=== PATIENT | female | born 1995 | race American Indian/Alaskan Native ===

== ENCOUNTER 2017-06-04 11:17 | Inpatient (IN) | payer OTHER ==
[2017-06-04 12:55] LABS: Bacteria,Urine 1+ /HPF (Negative); Bilirubin,Urine NEG (Negative); Blood,Urine SM (Negative); Color,Urine Yellow (Yellow); Mucus,Urine 3+ /HPF; Nitrite,Urine NEG (Negative)
[2017-06-04] MEDS ORDERED: ALUM-MAG HYDROX-SIMETH 200-200-20MG/5ML PO PRN (13:54)
[2017-06-04] MEDS ORDERED: MILK OF MAGNESIA PO PRN (13:54)
[2017-06-04] MEDS ORDERED: ZOFRAN IV PRN (13:54)
[2017-06-04] MEDS ORDERED: SENOKOT S PO PRN (13:54)
[2017-06-04] MEDS ORDERED: MYLICON PO PRN (13:54)
[2017-06-04] MEDS ORDERED: BENADRYL PO PRN (13:54)
[2017-06-04] MEDS ORDERED: TYLENOL PO PRN (13:54)
[2017-06-04] MEDS ORDERED: AMBIEN PO PRN (13:54)
[2017-06-04] MEDS ORDERED: MAGNESIUM SULFATE 40GM/1000ML 40 GM/1,000 ML BAG IV ONE (14:03)
[2017-06-04] MEDS ORDERED: MAGNESIUM SULFATE 4GM/100ML 4 GM/100 ML BAG IV ONE ×2 (14:04→15:00)
[2017-06-04] MEDS ORDERED: APRESOLINE ONE (14:04)
[2017-06-04] MEDS ORDERED: COLACE PO PRN (14:07)
[2017-06-04] MEDS: NORMODYNE PO SCH ×2 (14:10→22:17)
[2017-06-04 14:21] LABS: Alanine Aminotransferase 14 units/L (7-56); Uric Acid 3.7 mg/dL (3.5-7.6)
[2017-06-04 14:22] LABS: Hematocrit 33.4 % (30.3-42.9); Hemoglobin 10.9 gm/dl (10.1-14.3); Mean Corpuscular HGB Conc 33 % (30-34); Mean Corpuscular Hemoglobin 28 pg (28-32); Mean Corpuscular Volume 85 fl (79-97); Platelet Count 156 K/mm3 (140-440); Red Blood Count 3.92 M/mm3 (3.65-5.03)
[2017-06-04] MEDS ORDERED: MAGNESIUM SULFATE 40GM/1000ML 40 GM/1,000 ML BAG IV SCH (15:00)
[2017-06-04] MEDS ORDERED: APRESOLINE IV ONE (15:00)
[2017-06-04] MEDS: LACTATED RINGERS 1,000 ML IV SCH (16:32)
--- NOTE | 2017-06-04 18:59 | History and Physical Report ---
History of Present Illness Date of examination: 06/04/17 Chief complaint: sent from the office for hypertension History of present illness: Pt is a 22 year old -Ind[place]ian female JAH 10/13/17 at 21w2d who presents from the office with blood pressures elevated 150-160/80-90s with no previous elevated blood pressures at the prior visits. She denies headache, blurry vision or RUQ pain today. She has had limited care initiated at 15 wks complicated by Lupus, GERD, late entry to care, positive quad for Down's Syndrome with normal NIPT, and genital herpes, chlamydia with test of cure collected today. She has been referred to [facility] for comanagement of her lupus. She is GBS unknown. 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 cure collected today ), herpes Family/Genetic History: other (thyroid disease) Social history: no significant social history - Obstetrical History Expected Date of Delivery: 10/13/17 Actual Gestation: 21 Week(s) 2 Day(s) : 2 Para: 1 Hx # Term Pregnancies: 1 Number of Pregnancies: 0 Spontaneous Abortions: 0 Induced : 0 Number of Living Children: 1 Medications and Allergies Allergies Allergy/AdvReac Type Severity Reaction Status Date / Time No Known Allergies Allergy Unverified 12/02/13 10:53 Home Medications Medication Instructions Recorded Confirmed Last Taken Type Pnv,Calcium 72/Iron/Folic Acid 1 each PO DAILY 06/04/17 06/04/17 06/04/17 08:00 History [Pnv Plus Multivit Tab] 1 Active Meds: Active Medications Acetaminophen (Tylenol) 650 mg PO Q4H PRN PRN Reason: Pain MILD(1-3)/Fever >100.5/BELCHER Al Hydrox/Mg Hydrox/Simethicone (Alum-Mag Hydrox-Simeth 562-011-62cp/5ml) 30 ml PO Q6H PRN PRN Reason: Indigestion Diphenhydramine HCl (Benadryl) 25 mg PO Q6H PRN PRN Reason: Itching Docusate Sodium (Colace) 100 mg PO Q12H PRN PRN Reason: Constipation Lactated Ringer's (Lactated Ringers) 1,000 mls @ 75 mls/hr IV DIRECT KESHIA Last Admin: 06/04/17 16:32 Dose: 75 mls/hr Magnesium Sulfate (Magnesium Sulfate 40gm/1000ml) 40 gm in 1,000 mls @ 50 mls/ hr IV DIRECT KESHIA PRN Reason: 2 GM/HR Last Admin: 06/04/17 15:15 Dose: 2 gm/hr, 50 mls/hr Magnesium Sulfate (Magnesium Sulfate 4gm/100ml) 4 gm in 100 mls @ 25 mls/hr IV ONCE ONE Stop: 06/04/17 18:59 Last Admin: 06/04/17 14:30 Dose: 300 mls/hr Labetalol HCl (Normodyne) 200 mg PO BID KESHIA Last Admin: 06/04/17 14:10 Dose: 200 mg Magnesium Hydroxide (Milk Of Magnesia) 30 ml PO QHS PRN PRN Reason: Laxative Effect Multivitamins/Iron/Calcium ( Vitamin) 1 each PO QDAY [facility] Ondansetron HCl (Zofran) 4 mg IV Q6H PRN PRN Reason: Nausea And Vomiting Senna/Docusate Sodium (Senokot S) 2 tab PO Q12H PRN PRN Reason: Laxative Effect Simethicone (Mylicon) 80 mg PO Q6H PRN PRN Reason: Gas pain Zolpidem Tartrate (Ambien) 10 mg PO ONCE PRN PRN Reason: Sleep Review of Systems All systems: negative - Vital Signs Vital signs: Vital Signs Pulse BP 71 172/103 06/04/17 12:09 06/04/17 12:09 Temp Pulse Resp BP Pulse Ox 94 H 129/76 06/04/17 18:43 06/04/17 18:43 - Physical Exam Breasts: Positive: deferred Cardiovascular: Regular rate Lungs: Positive: Clear to auscultation Abdomen: Positive: soft (gravid ) Uterus: Positive: enlarged (gravid ) Extremities: Positive: normal - Obstetrical FHR: auscultation normal Results Result Diagrams: 06/04/17 Unknown 06/04/17 Unknown Abnormal lab results 06/04/17 06/04/17 Range/Units 12:00 Unknown Creatinine 0.4 L (0.7-1.2) mg/dL Urine WBC (Auto) 25.0 H (0.0-6.0) /HPF U Epithel Cells (Auto) 19.0 H (0-13.0) /HPF All other labs normal. Assessment and Plan A: IUP at 21w2d Hypertension Lupus GERD Quad positive with normal NIPT P: Admit to labor and delivery. Begin magnesium sulfate. IV antihypertensives. PIH labs. MFM consult. Q shift heart tones.
--- NOTE | 2017-06-04 19:13 | Event Note ---
Date: 06/04/17 [facility] records retrieved. Pt diagnosed with chronic hypertension at [facility] visit 05/22 at 19w3d. She was given a labetalol 100 mg BID prescription but she did not get it filled, not did she mention this clinical interaction until questioned. Plan to continue 24 hr urine collection and magnesium sulfate administration. Begin PO Labetalol. Continue to closely monitor clinical status.
--- NOTE | 2017-06-05 08:42 | Consultation ---
History of Present Illness Reason for consult: other (Pt is a 22 year old -Lithuanian female JAH at 21w3d who presented from OB office with blood pressures elevated 150-160/ 80-90s. She denied headache, blurry vision or RUQ pain today. She has had limited care initiated at 15 wks complicated by Lupus, GERD, late entry to care . Patient was referred to [facility] for Lupus . Initial consult was provided 05/22/17 - when BP was elevated (151/97 and 142/97 mm Hg under no medical regimen) and patient reported hx of HTN. Dr. Hernandez recommended Labetalol 100 mg po BID - PATIENT NEVER STARTED RX . Patient denied recent Lupus flare . She is not under Rheumatology care . Currently BPs are stable- 100-110/56-71 mm under Labetalol regimen . MgSO4 2 gm in progress . Per Primary OB positive quad for Down's Syndrome with normal NIPT . 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, test of cure collected today ), herpes Family/Genetic History: other (thyroid disease) - Obstetrical History : 2 Medications and Allergies Allergies Allergy/AdvReac Type Severity Reaction Status Date / Time No Known Allergies Allergy Unverified 12/02/13 10:53 Home Medications Medication Instructions Recorded Confirmed Last Taken Type Pnv,Calcium 72/Iron/Folic Acid 1 each PO DAILY 06/04/17 06/04/17 06/04/17 08:00 History [Pnv Plus Multivit Tab] 1 Active Meds: Active Medications Acetaminophen (Tylenol) 650 mg PO Q4H PRN PRN Reason: Pain MILD(1-3)/Fever >100.5/BELCHER Al Hydrox/Mg Hydrox/Simethicone (Alum-Mag Hydrox-Simeth [phone]/5ml) 30 ml PO Q6H PRN PRN Reason: Indigestion Diphenhydramine HCl (Benadryl) 25 mg PO Q6H PRN PRN Reason: Itching Docusate Sodium (Colace) 100 mg PO Q12H PRN PRN Reason: Constipation Lactated Ringer's (Lactated Ringers) 1,000 mls @ 75 mls/hr IV DIRECT KESHIA Last Admin: 06/04/17 16:32 Dose: 75 mls/hr Magnesium Sulfate (Magnesium Sulfate 40gm/1000ml) 40 gm in 1,000 mls @ 50 mls/ hr IV DIRECT KESHIA PRN Reason: 2 GM/HR Last Admin: 06/04/17 15:15 Dose: 2 gm/hr, 50 mls/hr Labetalol HCl (Normodyne) 200 mg PO BID [facility] Last Admin: 06/04/17 22:17 Dose: Not Given Magnesium Hydroxide (Milk Of Magnesia) 30 ml PO QHS PRN PRN Reason: Laxative Effect Multivitamins/Iron/Calcium ( Vitamin) 1 each PO QDAY [facility] Ondansetron HCl (Zofran) 4 mg IV Q6H PRN PRN Reason: Nausea And Vomiting Senna/Docusate Sodium (Senokot S) 2 tab PO Q12H PRN PRN Reason: Laxative Effect Simethicone (Mylicon) 80 mg PO Q6H PRN PRN Reason: Gas pain Zolpidem Tartrate (Ambien) 10 mg PO ONCE PRN PRN Reason: Sleep Review of Systems Constitutional: no fever, no chills Eyes: no photophobia Ears, nose, mouth and throat: no headache, no vertigo Cardiovascular: no chest pain, no edema, no lightheadedness, no shortness of breath Respiratory: no shortness of breath Breasts: deferred Gastrointestinal: no abdominal pain, no nausea, no vomiting, no heartburn Genitourinary: no vaginal bleeding, no vaginal discharge, no leakage of fluid Rectal Exam: deferred Musculoskeletal: no low back pain Neurological: no headaches, no convulsions Psychiatric: no depression Endocrine: no polyuria Hematologic/Lymphatic: no easy bruising, no easy bleeding Allergic/Immunologic: no wheezing - Vital Signs Vital signs: Vital Signs Pulse BP 71 172/103 06/04/17 12:09 06/04/17 12:09 Temp Pulse Resp BP Pulse Ox 98.2 F 82 18 117/71 06/05/17 08:23 06/05/17 08:28 06/05/17 08:23 06/05/17 08:28 - Physical Exam Breasts: Positive: deferred Cardiovascular: Regular rate Lungs: Positive: Normal air movement Abdomen: Negative: tenderness, guarding Uterus: Positive: other (gravid ). Negative: tender Extremities: Positive: normal Deep Tendon Reflex Grade: Normal +2 - Obstetrical FHR: other (+FHT per doppler ) Uterine Contraction Monitor Mode: Palpation (non palpable) Results Result Diagrams: 06/04/17 Unknown 06/04/17 Unknown Abnormal lab results 06/04/17 06/04/17 Range/Units 12:00 Unknown Creatinine 0.4 L (0.7-1.2) mg/dL Urine WBC (Auto) 25.0 H (0.0-6.0) /HPF U Epithel Cells (Auto) 19.0 H (0-13.0) /HPF All other labs normal. Assessment and Plan A) 1. 21.3 weeks 2. Hx of Lupus under no Rheumatology care 3. CHTN 4. Patient was non compliant with antihypertensive regimen 5. Stable BPs 100-110/56-71 under Labetalol regimen with NO RN VISITING features 6. Currently on MgSO4 7. Reported Abnormal AFP for T21 however NIPT was Negative 8. Positive HSV denied recent outbreak 9. Recent history and treatment of Chlamydia 10. 24 hr urine in progress P per Dr. Hernandez 1. Remain in patient 2. Continue 24 hr urine 3. Obtain Rheumatology consult 4. D/C MgSo4 5. Obtain EUGENIO 6. No change in Labetalol regimen
[2017-06-05] MEDS: PRENATAL VITAMIN PO SCH (09:53)
[2017-06-05] MEDS: NORMODYNE PO SCH ×2 (09:53→22:24)
--- NOTE | 2017-06-05 13:17 | Progress Note ---
Assessment and Plan A) 1. IUP 21.3 weeks 2. Hx of Lupus 3. CHTN 4. Non compliant with antihypertensive regimen 5. 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 Placed on Mag 7. Abnormal AFP for T21 however NIPT was Negative 8. Positive HSV no recent outbreak 9. Recent history and treatment of Chlamydia P 1. continue present mgyt 2. Continue 24 hr urine collection 3. rheumotology consult 4. D/C MgSo4 5. Obtain EUGENIO for chlamydia 6. continue Labetalol regimen Subjective - Subjective Date of service: 06/05/17 Principal diagnosis: HTN Patient reports: no new complaints, no loss of fluid, no vaginal bleeding, no contractions Objective - Vital Signs Vital Signs: Vital Signs - 12hr 06/05/17 06/05/17 06/05/17 01:28 01:43 01:58 Temperature Pulse Rate 88 86 85 Respiratory Rate Blood Pressure 115/73 115/71 117/73 Blood Pressure [Right] 06/05/17 06/05/17 06/05/17 02:13 02:28 02:43 Temperature Pulse Rate 96 H 89 88 Respiratory Rate Blood Pressure 125/76 128/76 128/81 Blood Pressure [Right] 06/05/17 06/05/17 06/05/17 02:58 03:13 03:28 Temperature Pulse Rate 81 79 96 H Respiratory Rate Blood Pressure 125/81 127/80 147/89 Blood Pressure [Right] 06/05/17 06/05/17 06/05/17 03:43 03:58 04:13 Temperature Pulse Rate 83 95 H 83 Respiratory Rate Blood Pressure 112/69 129/77 116/70 Blood Pressure [Right] 06/05/17 06/05/17 06/05/17 04:28 04:43 04:58 Temperature Pulse Rate 88 92 H 86 Respiratory Rate Blood Pressure 145/87 128/79 142/87 Blood Pressure [Right] 06/05/17 06/05/17 06/05/17 05:13 05:28 05:43 Temperature Pulse Rate 88 87 80 Respiratory Rate Blood Pressure 134/88 137/90 137/93 Blood Pressure [Right] 06/05/17 06/05/17 06/05/17 05:52 05:58 06:13 Temperature Pulse Rate 85 81 82 Respiratory Rate Blood Pressure 142/97 134/90 125/76 Blood Pressure [Right] 06/05/17 06/05/17 06/05/17 06:28 06:43 06:58 Temperature Pulse Rate 84 86 83 Respiratory Rate Blood Pressure 115/69 105/59 105/58 Blood Pressure [Right] 06/05/17 06/05/17 06/05/17 07:13 07:28 07:43 Temperature Pulse Rate 95 H 90 91 H Respiratory Rate Blood Pressure 104/55 118/65 118/70 Blood Pressure [Right] 06/05/17 06/05/17 06/05/17 07:58 08:13 08:23 Temperature 98.2 F Pulse Rate 86 92 H 84 Respiratory 18 Rate Blood Pressure 116/69 122/76 Blood Pressure 100/56 [Right] 06/05/17 06/05/17 06/05/17 08:25 08:27 08:28 Temperature Pulse Rate 84 82 Respiratory Rate Blood Pressure 100/56 117/71 Blood Pressure 117/71 [Right] 06/05/17 06/05/17 06/05/17 09:29 09:53 10:29 Temperature Pulse Rate 96 H 96 H 77 Respiratory Rate Blood Pressure 121/71 121/71 113/69 Blood Pressure [Right] 06/05/17 06/05/17 06/05/17 11:29 11:53 11:56 Temperature 97.7 F Pulse Rate 77 84 84 Respiratory 18 Rate Blood Pressure 133/75 125/84 Blood Pressure 125/84 [Right] 06/05/17 12:29 Temperature Pulse Rate 75 Respiratory Rate Blood Pressure 129/77 Blood Pressure [Right] - Exam Breasts: normal Cardiovascular: Regular rate, Normal S1 Lungs: Clear to auscultation, Normal air movement Abdomen: Present: normal appearance, soft, normal bowel sounds. Absent: distention, tenderness, guarding Vulva: both: normal Uterus: Present: normal, firm. Absent: bogginess, tenderness FHR: auscultation normal - Labs Labs: Abnormal Labs 06/04/17 06/04/17 12:00 Unknown Creatinine 0.4 L Urine WBC (Auto) 25.0 H U Epithel Cells (Auto) 19.0 H Laboratory Results - last 24 hr 06/04/17 06/04/17 06/04/17 20:05 Unknown Unknown WBC 4.5 RBC 3.92 Hgb 10.9 Hct 33.4 MCV 85 MCH 28 MCHC 33 RDW 14.0 Plt Count 156 Creatinine 0.4 L Estimated GFR > 60 Uric Acid 3.7 AST 17 ALT 14 Lactate Dehydrogenase 162 Blood Type O POSITIVE Antibody Screen Negative
[2017-06-05] MEDS: LACTATED RINGERS 1,000 ML IV SCH (17:24)
--- NOTE | 2017-06-05 22:24 | Consultation ---
History of Present Illness - Reason for Consult Consult date: 06/05/17 management of lupus Requesting physician: FABIOLA FRANCOIS - History of Present Illness 22-year-old -Nepalese female admitted for management of hypertension. Patient is 21 weeks 2 days . The attending is concerned about SLE.Patient apparently had symptoms of lupus in 2010. Patient had a butterfly rash on the face which resolved. Patient did not have any flareups in the last 6 years. Patient was following with [facility] family nurse at that time. Was not on plaquenil all these years. No symptoms of lupus at this point. No joint pains no rash no fatigue no weakness no altered sensorium. Past History Past Medical History: hypertension, other (lupus) Past Surgical History: No surgical history Social history: no significant social history, lives with family, full code Family history: no significant family history Medications and Allergies Allergies Allergy/AdvReac Type Severity Reaction Status Date / Time No Known Allergies Allergy Unverified 12/02/13 10:53 Home Medications Medication Instructions Recorded Confirmed Last Taken Type Pnv,Calcium 72/Iron/Folic Acid 1 each PO DAILY 06/04/17 06/04/17 06/04/17 08:00 History [Pnv Plus Multivit Tab] 1 Labetalol [Normodyne TAB] 200 mg PO BID #30 tablet 06/05/17 Unknown Rx Active Meds: Active Medications Acetaminophen (Tylenol) 650 mg PO Q4H PRN PRN Reason: Pain MILD(1-3)/Fever >100.5/BELCHER Al Hydrox/Mg Hydrox/Simethicone (Alum-Mag Hydrox-Simeth [phone]/5ml) 30 ml PO Q6H PRN PRN Reason: Indigestion Diphenhydramine HCl (Benadryl) 25 mg PO Q6H PRN PRN Reason: Itching Docusate Sodium (Colace) 100 mg PO Q12H PRN PRN Reason: Constipation Lactated Ringer's (Lactated Ringers) 1,000 mls @ 75 mls/hr IV DIRECT [facility] Last Admin: 06/05/17 17:24 Dose: 75 mls/hr Labetalol HCl (Normodyne) 200 mg PO BID [facility] Last Admin: 06/05/17 09:53 Dose: 200 mg Magnesium Hydroxide (Milk Of Magnesia) 30 ml PO QHS PRN PRN Reason: Laxative Effect Multivitamins/Iron/Calcium ( Vitamin) 1 each PO QDAY [facility] Last Admin: 06/05/17 09:53 Dose: 1 each Ondansetron HCl (Zofran) 4 mg IV Q6H PRN PRN Reason: Nausea And Vomiting Senna/Docusate Sodium (Senokot S) 2 tab PO Q12H PRN PRN Reason: Laxative Effect Simethicone (Mylicon) 80 mg PO Q6H PRN PRN Reason: Gas pain Zolpidem Tartrate (Ambien) 10 mg PO ONCE PRN PRN Reason: Sleep Review of Systems All systems: negative Exam - Constitutional Vitals: Temp Pulse Resp BP Pulse Ox 98 F 72 18 136/74 06/05/17 20:09 06/05/17 21:29 06/05/17 20:06/05/17 21:29 General appearance: Present: no acute distress, well-nourished - EENT Eyes: Present: PERRL ENT: hearing intact, clear oral mucosa - Neck Neck: Present: supple, normal ROM - Respiratory Respiratory effort: normal Respiratory: bilateral: CTA - Cardiovascular Heart Sounds: Present: S1 & S2. Absent: rub, click - Extremities Extremities: pulses symmetrical, No edema Peripheral Pulses: within normal limits - Abdominal General gastrointestinal: Present: soft, non-tender, non-distended, normal bowel sounds Female genitourinary: Present: normal - Integumentary Integumentary: Present: clear, warm, dry - Musculoskeletal Musculoskeletal: gait normal, strength equal bilaterally - Psychiatric Psychiatric: appropriate mood/affect, intact judgment & insight - Neurologic Neurologic: CNII-XII intact, moves all extremities Results - Labs CBC & Chem 7: 06/04/17 Unknown 06/04/17 Unknown Assessment and Plan - Patient Problems (1) Lupus (systemic lupus erythematosus) Current Visit: Yes Status: Inactive Qualifiers: Systemic lupus erythematosus type: unspecified Plan to address problem: inactive at this point. Will not treat. Ordered SEDIMENTATION RATE , CRP and dsDNA. If symptoms recur patient to be started on prednisone 5-[address] Karena Aguilera is a local family nurse in [place] with home she can follow.patient has a remote history of lupus symptoms and no records are available. We will treat if symptoms recur. 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 (2) Hypertension Current Visit: Yes Status: Chronic Qualifiers: Hypertension type: essential hypertension Qualified Code(s): I10 - Essential (primary) hypertension Plan to address problem: continue labetalol (3) DVT prophylaxis Current Visit: Yes Status: Acute Plan to address problem: SCDs
[2017-06-06] MEDS: LACTATED RINGERS 1,000 ML IV SCH ×3 (02:16→16:47)
--- NOTE | 2017-06-06 09:21 | Progress Note ---
Assessment and Plan A) 1. IUP 21.4 weeks 2. Hx of Lupus 3. CHTN 4. Non compliant with antihypertensive regimen 5. 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 s/p Placed on Mag 7. Abnormal AFP for T21 however NIPT was Negative 8. Positive HSV no recent outbreak 9. Recent history and treatment of Chlamydia 10 UTI P 1. continue present mgt 2. 24 hr urine 553 3. seen by IM recommneded ds DNA , CRP and sed rate and f/u with rheuma in [place] Dr. Silva 4. UTI treated with Rocephin and macrobid Rx ordered 5. await f/u with MFM 6. Consider d/c home Subjective - Subjective Date of service: 06/06/17 Principal diagnosis: HTN Interval history: patient states that she feels better Patient reports: movement normal, no new complaints, no loss of fluid, no vaginal bleeding, no contractions Objective - Vital Signs Vital Signs: Vital Signs - 12hr 06/05/17 06/05/17 06/05/17 21:29 22:24 22:29 Temperature Pulse Rate 72 72 85 Respiratory Rate Blood Pressure 136/74 136/74 178/102 Blood Pressure [Right] O2 Sat by Pulse Oximetry 06/05/17 06/05/17 06/05/17 22:30 23:29 23:57 Temperature Pulse Rate 79 73 68 Respiratory Rate Blood Pressure 155/92 163/105 168/105 Blood Pressure [Right] O2 Sat by Pulse Oximetry 06/06/17 06/06/17 06/06/17 00:14 00:29 01:29 Temperature Pulse Rate 84 72 72 Respiratory Rate Blood Pressure 147/99 146/98 128/67 Blood Pressure [Right] O2 Sat by Pulse Oximetry 06/06/17 06/06/17 06/06/17 02:29 03:29 04:29 Temperature Pulse Rate 81 72 75 Respiratory Rate Blood Pressure 147/91 140/81 124/73 Blood Pressure [Right] O2 Sat by Pulse Oximetry 06/06/17 06/06/17 06/06/17 05:29 06:29 07:09 Temperature Pulse Rate 75 93 H 85 Respiratory Rate Blood Pressure 142/84 158/97 128/82 Blood Pressure [Right] O2 Sat by Pulse Oximetry 06/06/17 06/06/17 06/06/17 07:29 08:12 08:29 Temperature 97 F L Pulse Rate 73 73 77 Respiratory 20 Rate Blood Pressure 140/85 180/102 Blood Pressure 140/85 [Right] O2 Sat by Pulse Oximetry 06/06/17 06/06/17 06/06/17 08:33 08:34 08:40 Temperature Pulse Rate 78 74 81 Respiratory Rate Blood Pressure 161/102 150/81 Blood Pressure [Right] O2 Sat by Pulse 100 Oximetry 06/06/17 06/06/17 06/06/17 08:45 08:50 08:55 Temperature Pulse Rate 73 71 89 Respiratory Rate Blood Pressure Blood Pressure [Right] O2 Sat by Pulse 100 100 100 Oximetry 06/06/17 06/06/17 06/06/17 09:00 09:05 09:10 Temperature Pulse Rate 86 80 72 Respiratory Rate Blood Pressure Blood Pressure [Right] O2 Sat by Pulse 97 98 100 Oximetry 06/06/17 06/06/17 06/06/17 09:11 09:15 09:20 Temperature Pulse Rate 78 75 79 Respiratory Rate Blood Pressure 156/95 Blood Pressure [Right] O2 Sat by Pulse 100 99 Oximetry - Exam Breasts: normal Cardiovascular: Regular rate, Normal S1 Lungs: Clear to auscultation, Normal air movement Abdomen: Present: normal appearance, soft, normal bowel sounds. Absent: distention, tenderness, guarding Vulva: both: normal Uterus: Present: normal, firm. Absent: bogginess, tenderness FHR: category 1 Extremities: normal Deep Tendon Reflex Grade: Normal +2 - Labs Labs: Abnormal Labs 06/04/17 06/04/17 06/05/17 12:00 Unknown 00:09 Creatinine 0.4 L Urine WBC (Auto) 25.0 H U Epithel Cells (Auto) 19.0 H Ur Total Protein 24 Hr 553.50 H Urine Total Protein 27 H Laboratory Results - last 24 hr 06/05/17 06/05/17 06/05/17 00:09 23:15 23:15 ESR 44 C-Reactive Protein 0.60 Urine Total Volume 2050 Ur Total Protein 24 Hr 553.50 H Urine Total Protein 27 H
[2017-06-06] MEDS: PRENATAL VITAMIN PO SCH (09:36)
[2017-06-06] MEDS: NORMODYNE PO SCH ×2 (09:38→23:37)
[2017-06-06] MEDS ORDERED: ROCEPHIN/NS 1 GM/50 ML 1 GM/50 ML BAG IV SCH (10:15)
[2017-06-06] MEDS ORDERED: cefTRIAXone 1 GM in NACL 0.9% 20 ML IV SCH (10:30)
--- NOTE | 2017-06-06 12:20 | Consultation ---
History of Present Illness Consult date: 06/06/17 Requesting physician: CHIKI KONG History of present illness: HPI Reason for consult Follow Up:: other (Pt is a 22 year old -Citizen Of [place] female JAH 10/13/17 at 21w4d who presented from OB office with blood pressures elevated 150-160/80-90s. OB's office BP's were normal earlier in preg 04/21/17 132/70 sitting BP's 140/80's when laying down but when sitting up while I was in room BP's Elevated Sitting Up : 177/103, 166/102 then laying it was 154/93 She denied headache, blurry vision or RUQ pain Labs 06/04/17 24 Hour Urine was 553 AST/ALT at Plts 156 10.9/33.4 She has had limited care initiated at 15 wks complicated by Lupus, GERD , late entry to care . Patient was referred to [facility] for Lupus . Initial consult was provided 05/22/17 - when BP was elevated (151/97 and 142/97 mm Hg under no medical regimen) and patient reported hx of HTN. Dr. Hernandez recommended Labetalol 100 mg po BID - PATIENT NEVER STARTED RX . Patient denied recent Lupus flare . She is not under Rheumatology care . quad for Down's Syndrome pos with normal NIPT . 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 History: chlamydia (treated, test of cure collected today ), herpes Family/Genetic History: other (thyroid disease) - Obstetrical History : 2 Medications and Allergies Allergies Allergy/AdvReac Type Severity Reaction Status Date / Time No Known Allergies Allergy Unverified 12/02/13 10:53 Home Medications Medication Instructions Recorded Confirmed Last Taken Type Pnv,Calcium 72/Iron/Folic Acid 1 each PO DAILY 06/04/17 06/04/17 06/04/17 08:00 History [Pnv Plus Multivit Tab] 1 Labetalol [Normodyne TAB] 200 mg PO BID #30 tablet 06/05/17 Unknown Rx Nitrofurantoin Monohyd/M-Cryst 100 mg PO BID #14 capsule 06/06/17 Unknown Rx [Macrobid 100 mg Capsule] Active Meds: Active Medications Acetaminophen (Tylenol) 1,000 mg PO Q6H PRN PRN Reason: Pain, Mild (1-3) Al Hydrox/Mg Hydrox/Simethicone (Alum-Mag Hydrox-Simeth [phone]/5ml) 30 ml PO Q6H PRN PRN Reason: Indigestion Diphenhydramine HCl (Benadryl) 25 mg PO Q6H PRN PRN Reason: Itching Docusate Sodium (Colace) 100 mg PO Q12H PRN PRN Reason: Constipation Hydralazine HCl (Apresoline) 10 mg IV Q4H PRN PRN Reason: Blood Pressure Lactated Ringer's (Lactated Ringers) 1,000 mls @ 75 mls/hr IV DIRECT [facility] Last Admin: 06/06/17 09:36 Dose: 75 mls/hr Ceftriaxone Sodium 1 gm/ (Sodium Chloride) 20 mls @ 20 mls/10 min IV Q24HR [facility] Labetalol HCl (Normodyne) 200 mg PO BID [facility] Last Admin: 06/06/17 09:38 Dose: 200 mg Magnesium Hydroxide (Milk Of Magnesia) 30 ml PO QHS PRN PRN Reason: Laxative Effect Multivitamins/Iron/Calcium ( Vitamin) 1 each PO QDAY [facility] Last Admin: 06/06/17 09:36 Dose: 1 each Ondansetron HCl (Zofran) 4 mg IV Q6H PRN PRN Reason: Nausea And Vomiting Senna/Docusate Sodium (Senokot S) 2 tab PO Q12H PRN PRN Reason: Laxative Effect Simethicone (Mylicon) 80 mg PO Q6H PRN PRN Reason: Gas pain Zolpidem Tartrate (Ambien) 10 mg PO ONCE PRN PRN Reason: Sleep - Vital Signs Vital signs: Vital Signs Pulse BP 71 172/103 06/04/17 12:09 06/04/17 12:09 Temp Pulse Resp BP Pulse Ox 97 F L 101 H 20 154/93 97 06/06/17 08:12 06/06/17 12:13 06/06/17 08:12 06/06/17 11:54 06/06/17 12:13 Results Result Diagrams: 06/04/17 Unknown 06/04/17 Unknown Abnormal lab results 06/05/17 Range/Units 00:09 Ur Total Protein 24 Hr 553.50 H (2-200) Urine Total Protein 27 H (5-11.8) mg/dL All other labs normal. Assessment and Plan Assessment 1. Akhtar IUP at 21 4/7 weels 2. 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 Elevated BP's can not R/O Early Onset Preeclampsia and Patient denies H/O CHTN OB's office BP's were normal earlier in preg 04/21/17 132/70 sitting but elevated at 19 weeks at [facility] 4. Patient was non compliant with antihypertensive regimen 5. BP's Elevateed this AM at 177/103 and 166/102 sitting 7. Reported Abnormal AFP for T21 however NIPT was Negative 8. Positive HSV denied recent outbreak 9. Recent history and treatment of Chlamydia 10.24 Hour Prot at 553 Plan: 1. Continue in patient care 2. Increase Labetalol from 200 to 300 mg BID 3. Take BP's in sitting position 4. Repeat 24 hour urine and PIH labs cbc and cmp, labs tomorrow 5. IV Hydralazine for BP's sys >160 or guzman >110 6. Obtain HbA1c, Antiphosphlipid labs (Cardiolipin IgG and IgM and Lupus anticoagulant) BECCA, TSH, Sjogrens SSA and SSB 7. Rheumatology consult 8. Baby aspirin 81 mg q day
[2017-06-06 15:07] LABS: Hematocrit 30.1 % (30.3-42.9); Hemoglobin 9.9 gm/dl (10.1-14.3); Mean Corpuscular HGB Conc 33 % (30-34); Mean Corpuscular Hemoglobin 28 pg (28-32); Mean Corpuscular Volume 87 fl (79-97); Platelet Count 152 K/mm3 (140-440); Red Blood Count 3.47 M/mm3 (3.65-5.03); Red Cell Distribution Width 13.9 % (13.2-15.2)
[2017-06-06 15:29] LABS: Alanine Aminotransferase 10 units/L (7-56)
[2017-06-06] MEDS: APRESOLINE IV PRN (16:31)
[2017-06-06] MEDS: TYLENOL PO PRN (18:08)
--- NOTE | 2017-06-06 20:24 | Consultation ---
History of Present Illness - Reason for Consult Consult date: 06/06/17 elevated BP Requesting physician: SRI KONG - History of Present Illness Initial consult already done on a 22 y/o lady with 21.5 week . Pt seen and examined. Denies any chest pain,Shortness of breath or PND Past History Past Medical History: hypertension, other (lupus) Past Surgical History: No surgical history Social history: no significant social history, lives with family, full code Family history: no significant family history Medications and Allergies Allergies Allergy/AdvReac Type Severity Reaction Status Date / Time No Known Allergies Allergy Unverified 12/02/13 10:53 Home Medications Medication Instructions Recorded Confirmed Last Taken Type Pnv,Calcium 72/Iron/Folic Acid 1 each PO DAILY 06/04/17 06/04/17 06/04/17 08:00 History [Pnv Plus Multivit Tab] 1 Labetalol [Normodyne TAB] 200 mg PO BID #30 tablet 06/05/17 Unknown Rx Nitrofurantoin Monohyd/M-Cryst 100 mg PO BID #14 capsule 06/06/17 Unknown Rx [Macrobid 100 mg Capsule] Active Meds: Active Medications Acetaminophen (Tylenol) 1,000 mg PO Q6H PRN PRN Reason: Pain, Mild (1-3) Last Admin: 06/06/17 18:08 Dose: 1,000 mg Al Hydrox/Mg Hydrox/Simethicone (Alum-Mag Hydrox-Simeth [phone]/5ml) 30 ml PO Q6H PRN PRN Reason: Indigestion Diphenhydramine HCl (Benadryl) 25 mg PO Q6H PRN PRN Reason: Itching Docusate Sodium (Colace) 100 mg PO Q12H PRN PRN Reason: Constipation Hydralazine HCl (Apresoline) 10 mg IV Q4H PRN PRN Reason: Blood Pressure Last Admin: 06/06/17 16:31 Dose: 10 mg Lactated Ringer's (Lactated Ringers) 1,000 mls @ 75 mls/hr IV DIRECT [facility] Last Admin: 06/06/17 16:47 Dose: 75 mls/hr Ceftriaxone Sodium 1 gm/ (Sodium Chloride) 20 mls @ 20 mls/10 min IV Q24HR [facility] Labetalol HCl (Normodyne) 300 mg PO BID [facility] Magnesium Hydroxide (Milk Of Magnesia) 30 ml PO QHS PRN PRN Reason: Laxative Effect Multivitamins/Iron/Calcium ( Vitamin) 1 each PO QDAY [facility] Last Admin: 06/06/17 09:36 Dose: 1 each Ondansetron HCl (Zofran) 4 mg IV Q6H PRN PRN Reason: Nausea And Vomiting Senna/Docusate Sodium (Senokot S) 2 tab PO Q12H PRN PRN Reason: Laxative Effect Simethicone (Mylicon) 80 mg PO Q6H PRN PRN Reason: Gas pain Zolpidem Tartrate (Ambien) 10 mg PO ONCE PRN PRN Reason: Sleep Review of Systems Constitutional: weight gain, no weight loss, no fever, no chills Cardiovascular: no chest pain, no orthopnea, no palpitations, no rapid/ irregular heart beat Respiratory: no cough, no cough with sputum, no excessive sputum Gastrointestinal: no abdominal pain, no nausea, no vomiting, no diarrhea, no constipation Musculoskeletal: no neck stiffness, no neck pain, no shooting arm pain, no arm numbness/tingling Integumentary: no rash, no pruritis, no redness, no sores Neurological: no head injury, no transient paralysis, no paralysis, no weakness Psychiatric: no anxiety, no memory loss, no change in sleep habits, no sleep disturbances, no insomnia Endocrine: no cold intolerance, no heat intolerance, no polyphagia, no excessive thirst, no polydipsia Hematologic/Lymphatic: no easy bruising, no easy bleeding Exam - Constitutional Vitals: Temp Pulse Resp BP Pulse Ox 97 F L 98 H 20 140/76 99 06/06/17 08:12 06/06/17 20:19 06/06/17 18:08 06/06/17 20:07 06/06/17 20:19 General appearance: Present: no acute distress, well-nourished - EENT Eyes: Present: PERRL - Neck Neck: Present: supple, normal ROM - Respiratory Respiratory effort: normal Respiratory: bilateral: CTA - Cardiovascular Heart Sounds: Present: S1 & S2. Absent: rub, click - Extremities Extremities: pulses symmetrical, No edema Peripheral Pulses: within normal limits - Abdominal General gastrointestinal: Present: soft, non-tender - Integumentary Integumentary: Present: clear, warm, dry - Musculoskeletal Musculoskeletal: gait normal, strength equal bilaterally - Psychiatric Psychiatric: appropriate mood/affect, intact judgment & insight - Neurologic Neurologic: CNII-XII intact, moves all extremities Results - Labs CBC & Chem 7: 06/07/17 12:45 06/07/17 12:45 Labs: Abnormal lab results 06/05/17 06/06/17 06/06/17 Range/Units 00:09 14:50 14:50 WBC 4.2 L (4.5-11.0) K/mm3 RBC 3.47 L (3.65-5.03) M/mm3 Hgb 9.9 L (10.1-14.3) gm/dl Hct 30.1 L (30.3-42.9) % Creatinine 0.5 L (0.7-1.2) mg/dL Ur Total Protein 24 Hr 553.50 H (2-200) Urine Total Protein 27 H (5-11.8) mg/dL Assessment and Plan - HTN in 21.4 day Already on Labetalol. May increase it to 300 mg tid if BP still not controlled Will avoid Hydrallazin b/c of drug induced Lupus in a pt with Lupus - H/o Lupus: Stable Prednisone 10 mg po qd for any flare -
[2017-06-07] MEDS: LACTATED RINGERS 1,000 ML IV SCH ×2 (03:23→15:18)
[2017-06-07] MEDS: APRESOLINE IV PRN ×2 (08:46→15:27)
[2017-06-07] MEDS: TYLENOL PO PRN (10:00)
[2017-06-07] MEDS: PRENATAL VITAMIN PO SCH (10:00)
[2017-06-07] MEDS: NORMODYNE PO SCH ×3 (10:01→21:58)
--- NOTE | 2017-06-07 11:45 | Progress Note ---
Assessment and Plan A) 1. IUP 21.5 weeks 2. Hx of Lupus 3. CHTN 4. Non compliant with antihypertensive regimen 5. 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 s/p Placed on Mag 7. Abnormal AFP for T21 however NIPT was Negative 8. Positive HSV no recent outbreak 9. Recent history and treatment of Chlamydia 10 UTI P 1. Continue in patient care 2. Increase Labetalol from 300 to 300mg q8hrs 3. Take BP's in sitting position 4. Repeat 24 hour urine and PIH labs cbc and cmp, labs today 5. IV Hydralazine for BP's sys >160 or guzman >110 6. Obtain HbA1c, Antiphosphlipid labs (Cardiolipin IgG and IgM and Lupus anticoagulant) BECCA, TSH, Sjogrens SSA and SSB 7. Rheumatology consult-seen by IM will see on outside as this hospital has no rheumatology 8. Baby aspirin 81 mg q day Subjective - Subjective Date of service: 06/07/17 Principal diagnosis: HTN Interval history: patient states that she feels better Patient reports: movement normal, no new complaints, no loss of fluid, no vaginal bleeding, no contractions Objective - Vital Signs Vital Signs: Vital Signs - 12hr 06/07/17 06/07/17 06/07/17 00:39 01:39 02:39 Temperature Pulse Rate 91 H 86 93 H Respiratory Rate Blood Pressure 122/73 131/79 129/84 Blood Pressure [Right] O2 Sat by Pulse Oximetry 06/07/17 06/07/17 06/07/17 03:24 03:39 04:39 Temperature 98.6 F Pulse Rate 93 H 86 88 Respiratory 16 Rate Blood Pressure 141/90 150/100 Blood Pressure 129/84 [Right] O2 Sat by Pulse Oximetry 06/07/17 06/07/17 06/07/17 05:39 06:39 07:39 Temperature Pulse Rate 89 103 H 104 H Respiratory Rate Blood Pressure 147/94 165/108 141/92 Blood Pressure [Right] O2 Sat by Pulse Oximetry 06/07/17 06/07/17 06/07/17 08:10 08:13 08:14 Temperature 97.9 F Pulse Rate 93 H 89 93 H Respiratory 18 Rate Blood Pressure 138/90 Blood Pressure 138/90 [Right] O2 Sat by Pulse 100 81 L 100 Oximetry 06/07/17 06/07/17 06/07/17 08:40 08:46 09:08 Temperature Pulse Rate 85 85 107 H Respiratory Rate Blood Pressure 181/104 181/104 142/96 Blood Pressure [Right] O2 Sat by Pulse Oximetry 06/07/17 06/07/17 06/07/17 09:23 09:38 09:53 Temperature Pulse Rate 101 H 102 H 95 H Respiratory Rate Blood Pressure 136/84 143/88 119/72 Blood Pressure [Right] O2 Sat by Pulse Oximetry 06/07/17 06/07/17 06/07/17 10:00 10:01 10:08 Temperature Pulse Rate 95 H 91 H Respiratory 18 Rate Blood Pressure 119/72 153/92 Blood Pressure [Right] O2 Sat by Pulse Oximetry 06/07/17 06/07/17 06/07/17 10:23 10:38 10:53 Temperature Pulse Rate 87 85 87 Respiratory Rate Blood Pressure 157/103 158/103 156/102 Blood Pressure [Right] O2 Sat by Pulse Oximetry 06/07/17 06/07/17 06/07/17 11:09 11:23 11:38 Temperature Pulse Rate 83 90 81 Respiratory Rate Blood Pressure 164/102 174/109 132/83 Blood Pressure [Right] O2 Sat by Pulse Oximetry - Exam Breasts: normal Cardiovascular: Regular rate, Normal S1 Lungs: Clear to auscultation, Normal air movement Abdomen: Present: normal appearance, soft, normal bowel sounds. Absent: distention, tenderness, guarding Vulva: both: normal Uterus: Present: normal, firm. Absent: bogginess FHR: auscultation normal Deep Tendon Reflex Grade: Normal +2 - Labs Labs: Abnormal Labs 06/04/17 06/04/17 06/05/17 12:00 Unknown 00:09 WBC RBC Hgb Hct Creatinine 0.4 L Urine WBC (Auto) 25.0 H U Epithel Cells (Auto) 19.0 H Ur Total Protein 24 Hr 553.50 H Urine Total Protein 27 H 06/06/17 06/06/17 14:50 14:50 WBC 4.2 L RBC 3.47 L Hgb 9.9 L Hct 30.1 L Creatinine 0.5 L Urine WBC (Auto) U Epithel Cells (Auto) Ur Total Protein 24 Hr Urine Total Protein Laboratory Results - last 24 hr 06/06/17 06/06/17 14:50 14:50 WBC 4.2 L RBC 3.47 L Hgb 9.9 L Hct 30.1 L MCV 87 MCH 28 MCHC 33 RDW 13.9 Plt Count 152 Creatinine 0.5 L Estimated GFR > 60 Uric Acid 4.0 ALT 10 Lactate Dehydrogenase 152
[2017-06-07] MEDS ORDERED: FIORICET PO PRN (12:23)
[2017-06-07] MEDS ORDERED: BABY ASPIRIN PO SCH (13:00)
[2017-06-07 13:14] LABS: Hematocrit 29.5 % (30.3-42.9); Hemoglobin 9.5 gm/dl (10.1-14.3); Mean Corpuscular HGB Conc 32 % (30-34); Mean Corpuscular Hemoglobin 28 pg (28-32); Mean Corpuscular Volume 86 fl (79-97); Platelet Count 162 K/mm3 (140-440); Red Blood Count 3.43 M/mm3 (3.65-5.03); Red Cell Distribution Width 14.1 % (13.2-15.2)
[2017-06-07 13:44] LABS: Alanine Aminotransferase 10 units/L (7-56); BUN/Creatinine Ratio 23; Blood Urea Nitrogen 9 mg/dL (7-17); Calcium 8.3 mg/dL (8.4-10.2); Hemolysis Index 0
[2017-06-07 14:05] LABS: Alanine Aminotransferase 10 units/L (7-56); Uric Acid 3.9 mg/dL (3.5-7.6)
[2017-06-07 17:18] LABS: Creatinine,Urine 67.1 mg/dL (0.1-20.0)
[2017-06-07 17:19] LABS: Creatinine 24 Hour,Urine 1.3 (0.8-2.8)
[2017-06-07 18:01] LABS: Bilirubin,Urine NEG (Negative); Blood,Urine SM (Negative); Color,Urine Yellow (Yellow); Mucus,Urine FEW /HPF; Nitrite,Urine NEG (Negative); Protein,Urine <15 mg/dL mg/dL (Negative); Urobilinogen,Urine < 2.0 mg/dL (<2.0)
--- NOTE | 2017-06-07 18:14 | Progress Note ---
Assessment and Plan - HTN in Already on Labetalol 300mg tid. Had episode of BP increasing to 150s May incase to 600 tid. - H/o Lupus: Stable Prednisone 10 mg po qd for any flare Subjective Date of service: 06/07/17 Principal diagnosis: HTN in , H/o Lupus Interval history: Patient seen and examined. Had headache today that has resolved. Objective - Constitutional Vitals: Vital Signs - 12hr 06/07/17 06/07/17 06/07/17 06:39 07:39 08:10 Temperature 97.9 F Pulse Rate 103 H 104 H 93 H Respiratory 18 Rate Blood Pressure 165/108 141/92 Blood Pressure 138/90 [Right] O2 Sat by Pulse 100 Oximetry 06/07/17 06/07/17 06/07/17 08:13 08:14 08:40 Temperature Pulse Rate 89 93 H 85 Respiratory Rate Blood Pressure 138/90 181/104 Blood Pressure [Right] O2 Sat by Pulse 81 L 100 Oximetry 06/07/17 06/07/17 06/07/17 08:46 09:08 09:23 Temperature Pulse Rate 85 107 H 101 H Respiratory Rate Blood Pressure 181/104 142/96 136/84 Blood Pressure [Right] O2 Sat by Pulse Oximetry 06/07/17 06/07/17 06/07/17 09:38 09:53 10:00 Temperature Pulse Rate 102 H 95 H Respiratory 18 Rate Blood Pressure 143/88 119/72 Blood Pressure [Right] O2 Sat by Pulse Oximetry 06/07/17 06/07/17 06/07/17 10:01 10:08 10:23 Temperature Pulse Rate 95 H 91 H 87 Respiratory Rate Blood Pressure 119/72 153/92 157/103 Blood Pressure [Right] O2 Sat by Pulse Oximetry 06/07/17 06/07/17 06/07/17 10:38 10:53 11:09 Temperature Pulse Rate 85 87 83 Respiratory Rate Blood Pressure 158/103 156/102 164/102 Blood Pressure [Right] O2 Sat by Pulse Oximetry 06/07/17 06/07/17 06/07/17 11:23 11:38 12:08 Temperature Pulse Rate 90 81 88 Respiratory Rate Blood Pressure 174/109 132/83 149/91 Blood Pressure [Right] O2 Sat by Pulse Oximetry 06/07/17 06/07/17 06/07/17 12:23 12:38 13:08 Temperature Pulse Rate 91 H 88 86 Respiratory Rate Blood Pressure 144/89 150/92 163/99 Blood Pressure [Right] O2 Sat by Pulse Oximetry 06/07/17 06/07/17 06/07/17 13:23 13:38 13:53 Temperature Pulse Rate 80 92 H 85 Respiratory Rate Blood Pressure 154/98 145/99 145/95 Blood Pressure [Right] O2 Sat by Pulse Oximetry 06/07/17 06/07/17 06/07/17 14:08 14:23 14:33 Temperature Pulse Rate 89 83 83 Respiratory Rate Blood Pressure 139/84 153/100 153/100 Blood Pressure [Right] O2 Sat by Pulse Oximetry 06/07/17 06/07/17 06/07/17 14:38 14:53 15:08 Temperature Pulse Rate 96 H 90 81 Respiratory Rate Blood Pressure 165/105 161/113 151/100 Blood Pressure [Right] O2 Sat by Pulse Oximetry 06/07/17 06/07/17 06/07/17 15:23 15:38 15:53 Temperature Pulse Rate 82 86 96 H Respiratory Rate Blood Pressure 160/107 126/74 112/67 Blood Pressure [Right] O2 Sat by Pulse Oximetry 06/07/17 06/07/17 06/07/17 15:57 16:01 16:08 Temperature 99.5 F Pulse Rate 102 H 101 H Respiratory 18 Rate Blood Pressure 122/76 106/56 Blood Pressure [Right] O2 Sat by Pulse Oximetry 06/07/17 06/07/17 06/07/17 16:23 16:38 16:53 Temperature Pulse Rate 100 H 102 H 96 H Respiratory Rate Blood Pressure 104/58 111/62 119/72 Blood Pressure [Right] O2 Sat by Pulse Oximetry 06/07/17 06/07/17 06/07/17 17:08 17:23 17:38 Temperature Pulse Rate 91 H 100 H 93 H Respiratory Rate Blood Pressure 142/88 121/71 109/65 Blood Pressure [Right] O2 Sat by Pulse Oximetry 06/07/17 06/07/17 17:53 18:08 Temperature Pulse Rate 101 H 93 H Respiratory Rate Blood Pressure 128/82 111/60 Blood Pressure [Right] O2 Sat by Pulse Oximetry General appearance: Present: no acute distress, well-nourished - EENT Eyes: PERRL, EOM intact - Neck Neck: supple, normal ROM - Respiratory Respiratory effort: normal - Breasts Breasts: normal - Cardiovascular Rhythm: regular Heart Sounds: Present: S1 & S2. Absent: gallop, rub Extremities: pulses intact, No edema, normal color, Full ROM - Gastrointestinal General gastrointestinal: Present: soft, non-tender, non-distended, normal bowel sounds, other (to 5 days IUP) - Integumentary Integumentary: clear, warm, dry - Musculoskeletal Musculoskeletal: 1, strength equal bilaterally - Neurologic Neurologic: moves all extremities - Psychiatric Psychiatric: memory intact, appropriate mood/affect, intact judgment & insight - Labs CBC & Chem 7: 06/07/17 12:45 06/07/17 12:45 Labs: Abnormal lab results 06/07/17 06/07/17 06/07/17 Range/Units 12:45 12:45 12:45 RBC 3.43 L (3.65-5.03) M/mm3 Hgb 9.5 L (10.1-14.3) gm/dl Hct 29.5 L (30.3-42.9) % Sodium 136 L (137-145) mmol/L Creatinine 0.4 L 0.4 L (0.7-1.2) mg/dL Calcium 8.3 L (8.4-10.2) mg/dL Albumin 3.0 L (3.9-5) g/dL Urine Creatinine (0.1-20.0) mg/dL Ur Total Protein 24 Hr (2-200) Urine Total Protein (5-11.8) mg/dL 06/07/17 06/07/17 Range/Units 15:30 15:30 RBC (3.65-5.03) M/mm3 Hgb (10.1-14.3) gm/dl Hct (30.3-42.9) % Sodium (137-145) mmol/L Creatinine (0.7-1.2) mg/dL Calcium (8.4-10.2) mg/dL Albumin (3.9-5) g/dL Urine Creatinine 67.1 H (0.1-20.0) mg/dL Ur Total Protein 24 Hr 380.00 H (2-200) Urine Total Protein 20 H (5-11.8) mg/dL
[2017-06-08] MEDS: LACTATED RINGERS 1,000 ML IV SCH (03:09)
[2017-06-08 09:00] VITALS: BP 141/93
--- NOTE | 2017-06-08 09:03 | Progress Note ---
Assessment and Plan A) 1. IUP 21.6 weeks 2. Hx of Lupus 3. CHTN 4. Non compliant with antihypertensive regimen 5. 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 s/p Placed on Mag 7. Abnormal AFP for T21 however NIPT was Negative 8. Positive HSV no recent outbreak 9. Recent history and treatment of Chlamydia 10 UTI P 1. Discharge home with precautions 2. Decrease Labetalol from 300mg tid to 200mg Q8hrs 3. 24 hr urine decreased from 500 s to 300s 4. PIH labs normal 5. Denies walden,bv, nor scotomata 6. sent special labs see previous note( send out labs ) 7. rheumatology consult 8. Baby aspirin 81 mg q day 9. f/u with Dr. Sullivan this 10. Spoke with Dr. Hernandez and agrees with plan Subjective - Subjective Date of service: 06/08/17 Principal diagnosis: HTN in , H/o Lupus Interval history: patient states that she feels better Patient reports: movement normal, no new complaints, no loss of fluid, no vaginal bleeding, no contractions Objective - Vital Signs Vital Signs: Vital Signs - 12hr 06/07/17 06/07/17 06/07/17 21:24 21:54 21:58 Pulse Rate 86 98 H 98 H Blood Pressure 118/76 135/88 135/88 06/07/17 06/08/17 06/08/17 23:05 00:05 01:05 Pulse Rate 92 H 88 107 H Blood Pressure 106/63 101/55 138/87 06/08/17 06/08/17 06/08/17 02:05 03:05 04:05 Pulse Rate 81 85 82 Blood Pressure 108/59 128/78 115/69 06/08/17 06/08/17 06/08/17 05:05 06:05 07:05 Pulse Rate 85 83 84 Blood Pressure 125/72 132/66 129/78 - Exam Breasts: normal Cardiovascular: Regular rate, Normal S1 Lungs: Clear to auscultation, Normal air movement Abdomen: Present: normal appearance, soft, normal bowel sounds. Absent: distention, tenderness Vulva: both: normal Uterus: Present: normal FHR: auscultation normal - Labs Labs: Abnormal Labs 06/04/17 06/04/17 06/05/17 12:00 Unknown 00:09 WBC RBC Hgb Hct Sodium Creatinine 0.4 L Calcium Albumin Urine pH Urine WBC (Auto) 25.0 H U Epithel Cells (Auto) 19.0 H Urine Creatinine Ur Total Protein 24 Hr 553.50 H Urine Total Protein 27 H 06/06/17 06/06/17 06/07/17 14:50 14:50 12:45 WBC 4.2 L RBC 3.47 L Hgb 9.9 L Hct 30.1 L Sodium 136 L Creatinine 0.5 L 0.4 L Calcium 8.3 L Albumin 3.0 L Urine pH Urine WBC (Auto) U Epithel Cells (Auto) Urine Creatinine Ur Total Protein 24 Hr Urine Total Protein 06/07/17 06/07/17 06/07/17 12:45 12:45 15:30 WBC RBC 3.43 L Hgb 9.5 L Hct 29.5 L Sodium Creatinine 0.4 L Calcium Albumin Urine pH Urine WBC (Auto) U Epithel Cells (Auto) Urine Creatinine 67.1 H Ur Total Protein 24 Hr Urine Total Protein 06/07/17 06/07/17 15:30 16:30 WBC RBC Hgb Hct Sodium Creatinine Calcium Albumin Urine pH 8.0 H Urine WBC (Auto) 18.0 H U Epithel Cells (Auto) Urine Creatinine Ur Total Protein 24 Hr 380.00 H Urine Total Protein 20 H Laboratory Results - last 24 hr 06/07/17 06/07/17 06/07/17 12:45 12:45 12:45 WBC RBC Hgb Hct MCV MCH MCHC RDW Plt Count Sodium 136 L Potassium 4.2 Chloride 100.7 Carbon Dioxide 22 Anion Gap 18 BUN 9 Creatinine 0.4 L Estimated GFR > 60 BUN/Creatinine Ratio 23 Glucose 67 Hemoglobin A1c 4.8 Uric Acid Calcium 8.3 L Total Bilirubin 0.40 AST 14 ALT 10 Alkaline Phosphatase 48 Lactate Dehydrogenase Total Protein 6.9 Albumin 3.0 L Albumin/Globulin Ratio 0.8 TSH 0.726 Urine Color Urine Turbidity Urine pH Ur Specific [place] Urine Protein Urine Glucose (UA) Urine Ketones Urine Blood Urine Nitrite Urine Bilirubin Urine Urobilinogen Ur Leukocyte Esterase Urine WBC (Auto) Urine RBC (Auto) U Epithel Cells (Auto) Urine Mucus Urine Total Volume Urine Creatinine Ur Creatinine 24 Hour Ur Total Protein 24 Hr Urine Total Protein 06/07/17 06/07/17 06/07/17 12:45 12:45 15:30 WBC 4.6 RBC 3.43 L Hgb 9.5 L Hct 29.5 L MCV 86 MCH 28 MCHC 32 RDW 14.1 Plt Count 162 Sodium Potassium Chloride Carbon Dioxide Anion Gap BUN Creatinine 0.4 L Estimated GFR > 60 BUN/Creatinine Ratio Glucose Hemoglobin A1c Uric Acid 3.9 Calcium Total Bilirubin AST 13 ALT 10 Alkaline Phosphatase Lactate Dehydrogenase 141 Total Protein Albumin Albumin/Globulin Ratio TSH Urine Color Urine Turbidity Urine pH Ur Specific [place] Urine Protein Urine Glucose (UA) Urine Ketones Urine Blood Urine Nitrite Urine Bilirubin Urine Urobilinogen Ur Leukocyte Esterase Urine WBC (Auto) Urine RBC (Auto) U Epithel Cells (Auto) Urine Mucus Urine Total Volume 1900 Urine Creatinine 67.1 H Ur Creatinine 24 Hour 1.3 Ur Total Protein 24 Hr Urine Total Protein 06/07/17 06/07/17 15:30 16:30 WBC RBC Hgb Hct MCV MCH MCHC RDW Plt Count Sodium Potassium Chloride Carbon Dioxide Anion Gap BUN Creatinine Estimated GFR BUN/Creatinine Ratio Glucose Hemoglobin A1c Uric Acid Calcium Total Bilirubin AST ALT Alkaline Phosphatase Lactate Dehydrogenase Total Protein Albumin Albumin/Globulin Ratio TSH Urine Color Yellow Urine Turbidity Clear Urine pH 8.0 H Ur Specific [place] 1.013 Urine Protein <15 mg/dl Urine Glucose (UA) Neg Urine Ketones Neg Urine Blood Sm Urine Nitrite Neg Urine Bilirubin Neg Urine Urobilinogen < 2.0 Ur Leukocyte Esterase Mod Urine WBC (Auto) 18.0 H Urine RBC (Auto) 1.0 U Epithel Cells (Auto) 4.0 Urine Mucus Few Urine Total Volume 1900 Urine Creatinine Ur Creatinine 24 Hour Ur Total Protein 24 Hr 380.00 H Urine Total Protein 20 H
--- NOTE | 2017-06-08 09:10 | Discharge Summary ---
Providers - Providers Date of Admission: 06/04/17 13:54 Date of discharge: 06/08/17 Attending physician: FABIOLA FRANCOIS 06/04/17 13:54 Consult to Physician [CONS] Routine Consulting Provider: WILFREDO GARCIA Reason For Exam: [address] consult to:: EDUARDO Notified:: YES Phone number called:: [phone] Was contact made?: Yes If yes, spoke with:: YES Time called:: 15:38 06/05/17 13:17 Consult to Physician [CONS] Routine Consulting Provider: BARRON MCCALLUM Reason For Exam: IUP 21 weeks, chronic hTN , lupus Place consult to:: rheumatology/HOSPITALIST Notified:: Phone number called:: [phone] Was contact made?: Yes If yes, spoke with:: Time called:: 13:45 Comment:: SPOKE WITH Primary care physician: KIERAN JONES Hospitalization Reason for admission: other (chronic HTN) Discharge diagnosis: other (chronic HTN, lupus, non compliant) Condition at discharge: Good Disposition: DC-01 TO HOME OR SELFCARE Plan - Discharge Medications Prescriptions: Labetalol [Normodyne TAB] 200 mg PO Q8HR #60 tablet Labetalol [Normodyne TAB] 200 mg PO BID #30 tablet Nitrofurantoin Monohyd/M-Cryst [Macrobid 100 mg Capsule] 100 mg PO BID #14 capsule Nitrofurantoin Monohyd/M-Cryst [Macrobid 100 mg Capsule] 100 mg PO BID #14 capsule - Provider Discharge Summary Activity: routine Diet: routine Instructions: routine Additional instructions: [] Smoking cessation referral if applicable(refer to patient education folder for contact #) [] Refer to [facility] Booklet Call your doctor immediately for: * Fever > 100.5 * Heavy vaginal bleeding ( >1 pad per hour) * Severe persistent headache * Shortness of breath * Reddened, hot, painful area to leg or breast * Drainage or odor from incision. * Keep incision clean and dry at all times and follow doctor's instructions regarding bathing/showering - Follow up plan Follow up: KIERAN JONES MD [Primary Care Provider] - 7 Days CHIKI KONG MD [Staff Physician] - 3 Days
[2017-06-08] MEDS ORDERED: Fluarix Quad 2017-2018(36 MOS+ IM ONE (10:00)
[2017-06-08] MEDS: PRENATAL VITAMIN PO SCH (10:38)
[2017-06-08] MEDS ORDERED: NORMODYNE PO SCH (14:00)
[2017-06-10 04:02] LABS: Cardiolipin Ab IgA <11 APL (<=11); Cardiolipin Ab IgG 16 GPL (<=14); Cardiolipin Ab IgM 18 MPL (<=12)
[2017-06-11 22:00] LABS: ANA Screen, IFA Positive (Negative)
== END 2017-06-08 10:55 | disposition home or self-care (01) | DRG 781 ==
LOC: TRG 11:17 → LD 13:06 → TRG 13:54 → LD 13:54
PROVIDERS: ADMIT Obstetrics & Gynecology; ATTEND Obstetrics & Gynecology
PROC: 3E0234Z Introduction of Serum, Toxoid and Vaccine into Muscle, Percutaneous Approach (ICD-10-PCS; principal; 2017-06-08)
DX: O16.2 Unspecified maternal hypertension, second trimester (principal); O99.112 Other diseases of the blood and blood-forming organs and certain disorders involving the immune mechanism complicating pregnancy, second trimester; O98.312 Other infections with a predominantly sexual mode of transmission complicating pregnancy, second trimester; K21.9 Gastro-esophageal reflux disease without esophagitis; O99.612 Diseases of the digestive system complicating pregnancy, second trimester; M32.9 Systemic lupus erythematosus, unspecified; Z3A.21 21 weeks gestation of pregnancy; Z91.14 Patient's other noncompliance with medication regimen; Z23 Encounter for immunization; A60.00 Herpesviral infection of urogenital system, unspecified
CPT/HCPCS: 36415; 80053; 81001; 82565; 82570; 83036; 83615; 84156; 84443; 84450; 84460; 84550; 85027; 85613; 85652; 86038; 86140; 86147; 86225; 86235; 86850; 86900; 86901; 90686; J0360; J0696; J2405; J3475; J7120

== ENCOUNTER 2017-07-02 17:11 | Inpatient (IN) | payer OTHER ==
[2017-07-02] MEDS ORDERED: APRESOLINE IV ONE (18:35)
[2017-07-02] MEDS ORDERED: NORMODYNE PO ONE (18:35)
[2017-07-02 18:51] LABS: Hematocrit 39.5 % (30.3-42.9); Hemoglobin 12.8 gm/dl (10.1-14.3); Mean Corpuscular HGB Conc 33 % (30-34); Mean Corpuscular Hemoglobin 28 pg (28-32); Mean Corpuscular Volume 88 fl (79-97); Platelet Count 103 K/mm3 (140-440); Red Blood Count 4.51 M/mm3 (3.65-5.03); Red Cell Distribution Width 15.1 % (13.2-15.2)
[2017-07-02] MEDS ORDERED: DEEP SEA NS PRN (19:07)
[2017-07-02] MEDS ORDERED: ALUM-MAG HYDROX-SIMETH 200-200-20MG/5ML PO PRN (19:07)
[2017-07-02] MEDS ORDERED: MILK OF MAGNESIA PO PRN (19:07)
[2017-07-02] MEDS ORDERED: TYLENOL PO PRN (19:07)
[2017-07-02] MEDS ORDERED: SENOKOT S PO PRN (19:07)
[2017-07-02] MEDS ORDERED: MYLICON PO PRN (19:07)
[2017-07-02] MEDS ORDERED: COLACE PO PRN (19:07)
[2017-07-02 19:08] LABS: Alanine Aminotransferase 11 units/L (7-56); Uric Acid 5.5 mg/dL (3.5-7.6)
[2017-07-02] MEDS ORDERED: NORMODYNE IV ONE ×3 (19:17→23:16)
[2017-07-02] MEDS ORDERED: MAGNESIUM SULFATE 4GM/100ML 4 GM/100 ML BAG IV ONE (19:19)
[2017-07-02] MEDS: CELESTONE SOLUSPAN IM SCH (19:48)
[2017-07-02] MEDS ORDERED: MAGNESIUM SULFATE 40GM/1000ML 40 GM/1,000 ML BAG IV SCH (20:00)
[2017-07-02] MEDS ORDERED: LACTATED RINGERS 1,000 ML IV SCH (20:00)
[2017-07-02] MEDS ORDERED: MAGNESIUM SULFATE 40 GM in NACL 0.9% 1000 ML 1,000 ML IV SCH (22:00)
[2017-07-02] MEDS ORDERED: NORMODYNE PO SCH (22:00)
[2017-07-02 23:36] LABS: Creatinine,Urine < 4.2 mg/dL (0.1-20.0)
[2017-07-03] MEDS ORDERED: APRESOLINE IV ONE (00:20)
[2017-07-03 00:24] LABS: Bacteria,Urine 1+ /HPF (Negative); Bilirubin,Urine NEG (Negative); Blood,Urine MOD (Negative); Color,Urine Yellow (Yellow); Hyaline Casts,Urine 8 /LPF; Mucus,Urine FEW /HPF; Nitrite,Urine NEG (Negative); Urobilinogen,Urine < 2.0 mg/dL (<2.0)
[2017-07-03 00:26] LABS: Protein,Urine >500 mg/dL (Negative)
[2017-07-03] MEDS ORDERED: ePHEDrine SULFATE ONE (01:51)
[2017-07-03] MEDS ORDERED: ePHEDrine SULFATE IV PRN (01:53)
--- NOTE | 2017-07-03 02:13 | Event Note ---
Date: 07/03/17 Pt admitted for rule out preeclampsia in the setting of chronic hypertension. Pt 's highest blood pressures 200/121. Pt started on magnesium. She received hydralazine 10 mg at 1836 pm, labetalol 20 mg IV at 1948pm, labetalol 40 mg IV at 2212pm, labetalol 300 mg PO 2228pm, hydralazine 10 mg IV at 0103 am. Pt blood pressures overcorrected to 120/70s with subsequent repetitive variable decels. Pt given 10mg of epephedrine to increase blood pressure. Resultant pressures 130/80s and decelerations have ceased. Continue to monitor clinically.
--- NOTE | 2017-07-03 08:35 | History and Physical Report ---
History of Present Illness Date of examination: 07/03/17 Date of admission: 07/02/17 21:03 Chief complaint: elevated blood pressure History of present illness: Pt is a 22 year old -Maldivian female JAH 10/13/17 at 25w3d who presented from the office with blood pressures 140/100 despite patient report of compliance with labetalol 200mg BID. Since admission, she has been started on magnesium sulfate for seizure prophylaxis and a 24 hr urine collection has been started. She has received one dose of betamethasone. She received multiple doses of IV hydralazine and labetalol overnight resulting in overcorrection of hypertension treated with ephedrine. The patient's care at [facility] since 15 wks has been complicated by lupus, chronic HTN on labetalol 200mg BID, Positive Quad screen for Down Syndrome with negative NIPT, chlamydia treated and a h/o genital herpes. 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 ), herpes Family/Genetic History: other (thyroid dysfunction ) Social history: no significant social history - Obstetrical History Expected Date of Delivery: 10/13/17 Actual Gestation: 25 Week(s) 3 Day(s) : 2 Para: 1 Hx # Term Pregnancies: 1 Number of Pregnancies: 0 Spontaneous Abortions: 0 Induced : 0 Number of Living Children: 1 Medications and Allergies Allergies Allergy/AdvReac Type Severity Reaction Status Date / Time No Known Allergies Allergy Unverified 12/02/13 10:53 Home Medications Medication Instructions Recorded Confirmed Last Taken Type Pnv,Calcium 72/Iron/Folic Acid 1 each PO DAILY 06/04/17 06/04/17 06/04/17 08:00 History [Pnv Plus Multivit Tab] 1 RX: Labetalol [Normodyne TAB] 200 mg PO BID #30 tablet 06/05/17 Unknown Rx Nitrofurantoin Monohyd/M-Cryst 100 mg PO BID #14 capsule 06/06/17 Unknown Rx [Macrobid 100 mg Capsule] Nitrofurantoin Monohyd/M-Cryst 100 mg PO BID #14 capsule 06/08/17 Unknown Rx [Macrobid 100 mg Capsule] RX: Labetalol [Normodyne TAB] 200 mg PO Q8HR #60 tablet 06/08/17 Unknown Rx Active Meds: Active Medications Acetaminophen (Tylenol) 650 mg PO Q4H PRN PRN Reason: Pain MILD(1-3)/Fever >100.5/BELCHER Al Hydrox/Mg Hydrox/Simethicone (Alum-Mag Hydrox-Simeth [phone]/5ml) 30 ml PO Q6H PRN PRN Reason: Indigestion Betamethasone Acet/Betameth SodPhos (Celestone Soluspan) 12 mg IM Q24H [facility] Stop: 07/03/17 20:01 Last Admin: 07/02/17 19:48 Dose: 12 mg Docusate Sodium (Colace) 100 mg PO Q12H PRN PRN Reason: Constipation Ephedrine Sulfate (Ephedrine Sulfate) 10 mg IV PRN PRN PRN Reason: Blood Pressure Last Admin: 07/03/17 01:53 Dose: 10 mg Lactated Ringer's (Lactated Ringers) 1,000 mls @ 75 mls/hr IV DIRECT KESHIA Magnesium Sulfate 40 gm/ (Sodium Chloride) 1,080 mls @ 54 mls/hr IV DIRECT KESHIA PRN Reason: 2 GM/HR Last Admin: 07/02/17 22:30 Dose: 2 gm/hr, 54 mls/hr Influenza Virus Vaccine Quadrival (Fluarix Quad [id number](36 Mos+) 0.5 ml IM .ONCE ONE Stop: 07/03/17 12:01 Labetalol HCl (Normodyne) 300 mg PO BID [facility] Last Admin: 07/02/17 22:28 Dose: 300 mg Magnesium Hydroxide (Milk Of Magnesia) 30 ml PO QHS PRN PRN Reason: Laxative Effect Multivitamins/Iron/Calcium ( Vitamin) 1 each PO QDAY [facility] Senna/Docusate Sodium (Senokot S) 2 tab PO Q12H PRN PRN Reason: Laxative Effect Simethicone (Mylicon) 80 mg PO Q6H PRN PRN Reason: Gas pain Sodium Chloride (Deep Sea) 2 spray NS Q4H PRN PRN Reason: Congestion Review of Systems All systems: negative - Vital Signs Vital signs: Vital Signs Temp Resp 98.0 F 18 07/02/17 17:35 07/02/17 17:35 Temp Pulse Resp BP Pulse Ox 97.4 F L 82 18 135/82 99 07/03/17 06:30 07/03/17 08:33 07/03/17 06:30 07/03/17 08:33 07/03/17 08:29 - Physical Exam Breasts: Positive: deferred Cardiovascular: Regular rate Lungs: Positive: Clear to auscultation Abdomen: Positive: soft (gravid ) Uterus: Positive: enlarged (gravid ) Extremities: Positive: edema (trace) - Obstetrical FHR: category 2 Uterine Contraction Monitor Mode: External Results Result Diagrams: 07/02/17 18:25 07/02/17 18:25 Abnormal lab results 07/02/17 07/02/17 07/02/17 Range/Units 18:25 18:25 22:40 Plt Count 103 L (140-440) K/mm3 Lactate Dehydrogenase 324 H (91-180) units/L Urine pH 8.0 H (5.0-7.0) All other labs normal. Assessment and Plan A: IUP at 25w3d s/p 1 dose betamethasone Chronic hypertension, rule out preeclampsia on magnesium sulfate for seizure prophylaxis Thrombocytopenia Lupus P: Admit to antepartum service. MFM consult. Closely monitor maternal and status.
[2017-07-03] MEDS ORDERED: PRENATAL VITAMIN PO SCH (10:00)
[2017-07-03] MEDS ORDERED: Fluarix Quad 2017-2018(36 MOS+ IM ONE (12:00)
[2017-07-03] MEDS ORDERED: PEPCID IV SCH (12:00)
[2017-07-03] MEDS ORDERED: NORMODYNE IV ONE (15:00)
--- NOTE | 2017-07-03 15:00 | Event Note ---
Date: 07/03/17 Late entry. Pt c/o chest pain earlier this afternoon. Magnesium level drawn and noted to be 8. Magnesium stopped. EKG ordered. Pepcid 20mg IV for GERD. Serial magnesium levels. Hold until magnesium is less than 5, then resume at 1g per hour. Closely monitor clinical status.
--- NOTE | 2017-07-03 15:56 | Ultrasound Report ---
BIOPHYSICAL PROFILE: well-being evaluation. 2 - breathing movements 2 - movements 2 - posture and tone 2 - Qualitative amniotic fluid volume 8 - TOTAL SCORE OF POSSIBLE 8 Heart Rate (bpm) 121 Estimated gestational age is 25 weeks 3 days.
--- NOTE | 2017-07-03 18:59 | Event Note ---
Date: 07/03/17 Dr Benito Gill M has assessed the patient but he cannot log into [employer] and cannot enter his note at this time. He recommends delivery in the setting of persistent severe range pressures requiring frequent IV antihypertensives and oliguria with decreasing hourly output over the past 2-3 hours. Plan to attempt to transfer the patient as our NICU here is on diversion. Continue collection of 24 hr urine until pt is transferred. Continue to closely monitor clinical status.
[2017-07-03] MEDS: CELESTONE SOLUSPAN IM SCH (19:30)
[2017-07-03 20:38] VITALS: BP 151/92
--- NOTE | 2017-07-03 21:11 | Consultation ---
History of Present Illness Consult date: 07/03/17 Requesting physician: FABIOLA FRANCOIS Reason for consult: gestational hypertension History of present illness: 22 YO JAH 10/13/17 EGA 25w3d admitted due to elevated BPs noted at 140/ 100, with a history of lupus, and concerns of severe preeclampsia. She has been previously been seen by [facility] with her BP at 19 weeks noted at BP 151/97; REPEAT 142/97 This hospital admission she has required multiple doses of IV hydralazine and labetalol, with resulting hypotension. She denies any visual changes, however, admits to headaches. PIH labs are significant for Plts 103, normal LFTs. Her 24 hr urine result remains pending. She has received BMZ, and started on magnesium sulfate for seizure prophylaxis . Her magnesium levels were noted to be increasing, therefore her magnesium sulfate was discontinued. Her urine output has minimally met criteria for satisfactory output. She had care at [facility] since 15 wks and had a negative NIPT. She denies any lupus flare episodes. Her antepartum course has been complicated by lupus, chronic HTN managed on labetalol 200mg BID I discussed with her as well as the every 18 the concerns of her having findings that are consistent with severe preeclampsia based on her acutely elevated blood pressures, with additional concerns noted with her having thrombocytopenia and borderline oliguria. The oliguria is the likely cause for the elevated magnesium levels which further complicates her clinical management. 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 Family/Genetic History: other (thyroid dysfunction ) - Obstetrical History : 2 Medications and Allergies Allergies Allergy/AdvReac Type Severity Reaction Status Date / Time No Known Allergies Allergy Unverified 12/02/13 10:53 Home Medications Medication Instructions Recorded Confirmed Last Taken Type Pnv,Calcium 72/Iron/Folic Acid 1 each PO DAILY 06/04/17 06/04/17 06/04/17 08:00 History [Pnv Plus Multivit Tab] 1 Labetalol [Normodyne TAB] 200 mg PO BID #30 tablet 06/05/17 Unknown Rx Nitrofurantoin Monohyd/M-Cryst 100 mg PO BID #14 capsule 06/06/17 Unknown Rx [Macrobid 100 mg Capsule] Labetalol [Normodyne TAB] 200 mg PO Q8HR #60 tablet 06/08/17 Unknown Rx Nitrofurantoin Monohyd/M-Cryst 100 mg PO BID #14 capsule 06/08/17 Unknown Rx [Macrobid 100 mg Capsule] - Vital Signs Vital signs: Vital Signs Temp Resp 98.0 F 18 07/02/17 17:35 07/02/17 17:35 Temp Pulse Resp BP Pulse Ox 98.3 F 78 18 151/92 93 07/03/17 19:36 07/03/17 20:46 07/03/17 19:36 07/03/17 20:41 07/03/17 20:46 Results Result Diagrams: 07/02/17 18:25 07/02/17 18:25 Abnormal lab results 07/02/17 07/03/17 07/03/17 Range/Units 22:40 08:49 12:08 Magnesium 8.00 H 7.60 H (1.7-2.3) mg/dL Urine pH 8.0 H (5.0-7.0) 07/03/17 07/03/17 07/03/17 Range/Units 14:13 18:18 20:21 Magnesium 6.80 H 5.50 H 5.20 H (1.7-2.3) mg/dL Urine pH (5.0-7.0) All other labs normal. Assessment and Plan IMPRESSIONS: 1. IUP 25 weeks 2. Severe preeclampsia with signs of help based on her thrombocytopenia, and oliguria RECOMMENDATIONS: 1. Proceed with delivery
[2017-07-03 21:25] LABS: Total Volume,Urine 1200
[2017-07-03 21:26] LABS: Creatinine Clearance Urine 4
[2017-07-03 21:34] LABS: Creatinine 24 Hour,Urine 1.1 (0.8-2.8); Creatinine,Urine 88.2 mg/dL (0.1-20.0)
== END 2017-07-03 21:05 | disposition home or self-care (01) | DRG 781 ==
LOC: TRG 17:11 → LD 21:03 → OBSVTOIN 21:03
PROVIDERS: ADMIT Obstetrics & Gynecology; ATTEND Obstetrics & Gynecology
PROC: 3E0234Z Introduction of Serum, Toxoid and Vaccine into Muscle, Percutaneous Approach (ICD-10-PCS; principal; 2017-07-03)
DX: O14.12 Severe pre-eclampsia, second trimester (principal); O99.112 Other diseases of the blood and blood-forming organs and certain disorders involving the immune mechanism complicating pregnancy, second trimester; O16.2 Unspecified maternal hypertension, second trimester; O99.612 Diseases of the digestive system complicating pregnancy, second trimester; D69.6 Thrombocytopenia, unspecified; K21.9 Gastro-esophageal reflux disease without esophagitis; M32.9 Systemic lupus erythematosus, unspecified; Z3A.25 25 weeks gestation of pregnancy; Z23 Encounter for immunization
CPT/HCPCS: 36415; 76819; 81001; 82565; 82570; 82575; 83615; 83735; 84156; 84450; 84460; 84550; 85027; 86850; 86900; 86901; 90686; 93005; 93010; J0360; J0702; J3475; J7030; J7120

== ENCOUNTER 2017-11-30 18:29 | Emergency (ER) | payer OTHER ==
[2017-11-30] MEDS ORDERED: ZOFRAN ODT PO ONE (19:06)
[2017-11-30] MEDS ORDERED: MOTRIN PO ONE (19:06)
[2017-11-30] MEDS ORDERED: NACL 0.9% 1000 ML 2,000 ML IV ONE (19:06)
[2017-11-30] MEDS ORDERED: TYLENOL PO ONE (19:06)
--- NOTE | 2017-11-30 19:16 | Emergency Department Report ---
ED General Adult HPI - General Chief complaint: Pain General Stated complaint: CHILLS/ GENERALIZED PAIN Time Seen by Provider: 11/30/17 18:54 Source: patient Mode of arrival: Ambulatory Limitations: No Limitations - History of Present Illness Initial comments: 1 day of generalized fatigue, lower abdominal pain, nausea/vomiting. Patient decided to come to the ER to get checked out. She hasn't taking medications. The patient did not take her regular labetalol today, which she takes for high blood pressure. 4 months ago, patient had a uncomplicated . Denies vaginal complaints. Her right ear has been hurting with drainage for the past couple days. Patient states that a week ago she did go swimming in a pool. - Related Data Home Medications Medication Instructions Recorded Confirmed Last Taken Pnv,Calcium 72/Iron/Folic Acid 1 each PO DAILY 06/04/17 06/04/17 06/04/17 08:00 [Pnv Plus Multivit Tab] 1 Previous Rx's Medication Instructions Recorded Last Taken Type Labetalol [Normodyne TAB] 200 mg PO BID #30 tablet 06/05/17 Unknown Rx Nitrofurantoin Monohyd/M-Cryst 100 mg PO BID #14 capsule 06/06/17 Unknown Rx [Macrobid 100 mg Capsule] Labetalol [Normodyne TAB] 200 mg PO Q8HR #60 tablet 06/08/17 Unknown Rx Nitrofurantoin Monohyd/M-Cryst 100 mg PO BID #14 capsule 06/08/17 Unknown Rx [Macrobid 100 mg Capsule] Cephalexin [Keflex] 500 mg PO Q8HR #21 cap 12/01/17 Unknown Rx Neomy/Polymyx B/Hc Otic Susp 4 drops AU TID 7 Days #1 bottle 12/01/17 Unknown Rx [Cortisporin (Otic) Susp] Ondansetron [Zofran TAB] 4 mg PO Q8HR PRN #10 tablet 12/01/17 Unknown Rx Allergies Allergy/AdvReac Type Severity Reaction Status Date / Time amoxicillin AdvReac Angioedema Verified 11/30/17 18:31 ED Review of Systems ROS: Stated complaint: CHILLS/ GENERALIZED PAIN Other details as noted in HPI Comment: All other systems reviewed and negative Constitutional: malaise ENT: ear pain Gastrointestinal: abdominal pain, nausea, vomiting ED Past Medical Hx - Past Medical History Hx Hypertension: No Hx Heart Attack/AMI: No Hx Congestive Heart Failure: No Hx Diabetes: No Hx Deep Vein Thrombosis: No Hx Renal Disease: No Hx Sickle Cell Disease: No Hx Seizures: No Hx Asthma: No Hx COPD: No Hx HIV: No Additional medical history: Lupus - Surgical History Past Surgical History?: Yes Additional Surgical History: - Social History Smoking Status: Never Smoker Substance Use Type: Alcohol - Medications Home Medications: Home Medications Medication Instructions Recorded Confirmed Last Taken Type Pnv,Calcium 72/Iron/Folic Acid 1 each PO DAILY 06/04/17 06/04/17 06/04/17 08:00 History [Pnv Plus Multivit Tab] 1 Labetalol [Normodyne TAB] 200 mg PO BID #30 tablet 06/05/17 Unknown Rx Nitrofurantoin Monohyd/M-Cryst 100 mg PO BID #14 capsule 06/06/17 Unknown Rx [Macrobid 100 mg Capsule] Labetalol [Normodyne TAB] 200 mg PO Q8HR #60 tablet 06/08/17 Unknown Rx Nitrofurantoin Monohyd/M-Cryst 100 mg PO BID #14 capsule 06/08/17 Unknown Rx [Macrobid 100 mg Capsule] Cephalexin [Keflex] 500 mg PO Q8HR #21 cap 12/01/17 Unknown Rx Neomy/Polymyx B/Hc Otic Susp 4 drops AU TID 7 Days #1 bottle 12/01/17 Unknown Rx [Cortisporin (Otic) Susp] Ondansetron [Zofran TAB] 4 mg PO Q8HR PRN #10 tablet 12/01/17 Unknown Rx ED Physical Exam - General Limitations: No Limitations General appearance: alert, in no apparent distress - Head Head exam: Present: atraumatic, normocephalic - Eye Eye exam: Present: normal appearance - ENT ENT exam: Present: mucous membranes dry - Neck Neck exam: Present: normal inspection - Respiratory Respiratory exam: Present: normal lung sounds bilaterally. Absent: respiratory distress - Cardiovascular Cardiovascular Exam: Present: regular rate, normal rhythm, tachycardia. Absent : systolic murmur, diastolic murmur, rubs, gallop - GI/Abdominal GI/Abdominal exam: Present: soft, tenderness (mild TTP in the RLQ/LLQ. -McBurney 's), normal bowel sounds. Absent: guarding, rebound - Extremities Exam Extremities exam: Present: normal inspection - Back Exam Back exam: Present: normal inspection - Neurological Exam Neurological exam: Present: alert, oriented X3 - Psychiatric Psychiatric exam: Present: normal affect, normal mood - Skin Skin exam: Present: warm, dry, intact, normal color. Absent: rash ED Course Vital Signs 11/30/17 11/30/17 11/30/17 18:31 21:13 23:00 Temperature 101.5 F H 99.0 F Pulse Rate 151 H 125 H 105 H Respiratory 16 16 Rate Blood Pressure 152/107 Blood Pressure 132/91 122/73 [Left] O2 Sat by Pulse 99 100 99 Oximetry 12/01/17 01:17 Temperature 97.7 F Pulse Rate 90 Respiratory 14 Rate Blood Pressure Blood Pressure 114/77 [Left] O2 Sat by Pulse 99 Oximetry - Reevaluation(s) Reevaluation #1: On reevaluation, patient is sitting comfortably watching TV. She is eating without difficulty. Feels much improved. 12/01/17 00:48 ED Medical Decision Making - Lab Data Result diagrams: 11/30/17 Unknown 11/30/17 Unknown - EKG Data -: EKG Interpreted by Me EKG shows normal: sinus rhythm, axis, intervals, QRS complexes, ST-T waves Rate: tachycardia - EKG Data Interpretation: other (sinus tach) - Medical Decision Making 22-year-old female with past medical history of hypertension on beta wall that presents to the ER with generalized symptoms. Patient is febrile and tachycardic on presentation. She is meeting criteria concerning for sepsis. However, she is well-appearing and has been noncompliant with her beta carlitos. I gave the patient fluids and Tylenol/Motrin for her fever. On reevaluation her vitals have normalized. Physical exam significant for right otitis externa. Patient has been given Corticosporin drops to use. Low suspicion for sepsis at this point in time. Urinalysis shows concerns for a UTI. Patient has no flank tenderness. Given symptoms of fever, nausea or vomiting, and abdominal pain, I will treat it. Patient will be started on Keflex for 7 days. Urine is negative. Patient is cleared for discharge. - Differential Diagnosis otitis media versus externa, pneumonia, sepsis, UTI, pyelonephritis, pregna Critical care attestation.: If time is entered above; I have spent that time in minutes in the direct care of this critically ill patient, excluding procedure time. ED Disposition Clinical Impression: Otitis externa, Dehydration, UTI (urinary tract infection) Disposition: TO HOME OR SELFCARE Is pt being admited?: No Does the pt Need Aspirin: No Condition: Stable Instructions: Otitis Externa (ED), Urinary Tract Infection in Women (ED) Additional Instructions: No swimming until your ear feels better. You can take 975 mg tylenol ever 6 hours as needed for pain relief and to control your fever. Prescriptions: Cephalexin [Keflex] 500 mg PO Q8HR #21 cap Neomy/Polymyx B/Hc Otic Susp [Cortisporin (Otic) Susp] 4 drops AU TID 7 Days #1 bottle Ondansetron [Zofran TAB] 4 mg PO Q8HR PRN #10 tablet PRN Reason: Nausea And Vomiting Referrals: [facility] [Outside] - 3-5 Days
[2017-11-30 19:26] LABS: Basophils % (Auto) 0.1 % (0.0-1.8); Eosinophils % (Auto) 0.1 % (0.0-4.3); Hematocrit 35.5 % (30.3-42.9); Hemoglobin 11.2 gm/dl (10.1-14.3); Lymphocytes % (Auto) 7.1 % (13.4-35.0); Mean Corpuscular HGB Conc 32 % (30-34); Mean Corpuscular Volume 77 fl (79-97); Monocytes # (Auto) 0.6 K/mm3 (0.0-0.8); Monocytes % (Auto) 4.3 % (0.0-7.3); Platelet Count 166 K/mm3 (140-440); Red Blood Count 4.61 M/mm3 (3.65-5.03); Red Cell Distribution Width 16.2 % (13.2-15.2)
[2017-11-30 19:29] LABS: Mean Corpuscular Hemoglobin 24 pg (28-32)
[2017-11-30 19:44] LABS: Alanine Aminotransferase 14 units/L (7-56); Albumin 4.1 g/dL (3.9-5); BUN/Creatinine Ratio 17; Blood Urea Nitrogen 12 mg/dL (7-17); Calcium 8.8 mg/dL (8.4-10.2); Hemolysis Index 15
[2017-11-30] MEDS ORDERED: NACL 0.9% 1000 ML 1,000 ML IV SCH (20:00)
[2017-11-30] MEDS ORDERED: CORTISPORIN AU SCH (20:00)
[2017-12-01 01:18] VITALS: BP 114/77
[2017-12-01 01:30] LABS: Bilirubin,Urine NEG (Negative); Blood,Urine NEG (Negative); Color,Urine Yellow (Yellow); Mucus,Urine 2+ /HPF; Urobilinogen,Urine < 2.0 mg/dL (<2.0)
[2017-12-01 01:31] LABS: Protein,Urine >500 mg/dL (Negative)
[2017-12-01] MEDS ORDERED: KEFLEX PO ONE (01:40)
[2017-12-01 01:45] LABS: HCG Qualitative,Urine Negative (Negative)
== END 2017-12-01 02:44 | disposition home or self-care (01) ==
LOC: ED 18:29
DX: E86.0 Dehydration (principal); H60.91 Unspecified otitis externa, right ear; N39.0 Urinary tract infection, site not specified; Z88.1 Allergy status to other antibiotic agents
CPT/HCPCS: 36415; 80053; 81001; 81025; 85025; 93005; 93010; 96360; 96361; 99283; J7030; Q0162

== ENCOUNTER 2018-02-14 19:28 | Inpatient (IN) | payer SELFPAY ==
[2018-02-14 20:25] LABS: Bilirubin,Urine NEG (Negative); Blood,Urine SM (Negative); Color,Urine Yellow (Yellow); Mucus,Urine 1+ /HPF
[2018-02-14 20:27] LABS: Hematocrit 35.4 % (30.3-42.9); Hemoglobin 11.2 gm/dl (10.1-14.3); Mean Corpuscular HGB Conc 32 % (30-34); Mean Corpuscular Volume 79 fl (79-97); Platelet Count 216 K/mm3 (140-440); Red Blood Count 4.48 M/mm3 (3.65-5.03); Red Cell Distribution Width 15.7 % (13.2-15.2)
--- NOTE | 2018-02-14 20:33 | XRay Report ---
FINAL REPORT EXAM: XR CHEST ROUTINE 2V HISTORY: possible Sepsis TECHNIQUE: PA and lateral views of the chest Comparison: None FINDINGS: There is no evidence of infiltrate, pneumothorax or pleural fluid collection. The cardiomediastinal silhouette is normal in appearance. The bony structures are unremarkable. IMPRESSION: 1. No evidence of an acute pulmonary process.
[2018-02-14 20:34] LABS: Protein,Urine >500 mg/dL (Negative)
[2018-02-14] MEDS ORDERED: TYLENOL ONE (20:36)
[2018-02-14] MEDS ORDERED: TYLENOL PO ONE (20:37)
[2018-02-14] MEDS: NACL 0.9% 500 ML 500 ML IV ONE ×2 (20:37→22:10)
[2018-02-14 20:40] LABS: INR 1.21 (0.87-1.13)
[2018-02-14 20:43] LABS: Alanine Aminotransferase 22 units/L (7-56); Albumin 4.5 g/dL (3.9-5); BUN/Creatinine Ratio 16; Blood Urea Nitrogen 11 mg/dL (7-17); Calcium 9.1 mg/dL (8.4-10.2); Hemolysis Index 17
[2018-02-14 20:44] LABS: Mean Corpuscular Hemoglobin 25 pg (28-32)
[2018-02-14] MEDS ORDERED: NACL 0.9% 1000 ML 1,000 ML ONE (20:44)
[2018-02-14] MEDS ORDERED: NACL 0.9% 1000 ML 1,000 ML IV ONE ×2 (21:09→23:59)
[2018-02-14 21:55] LABS: Band Neutrophils # (Manual) 4.6 K/mm3; Basophils % (Manual) 0 % (0.0-1.8); Eosinophils % (Manual) 0 % (0.0-4.3); Total Cells Counted 100
[2018-02-14 21:56] LABS: Hypochromasia 1+
[2018-02-14] MEDS ORDERED: ZOFRAN IV ONE (23:07)
[2018-02-14] MEDS ORDERED: SUBLIMAZE IV ONE (23:07)
--- NOTE | 2018-02-14 23:13 | Emergency Department Report ---
HPI - General Chief Complaint: Fever Time Seen by Provider: 02/14/18 22:56 - HPI HPI: Room 35 The patient is a 22-year-old female presenting with a chief complaint of left breast pain. The patient states this morning she noticed pain in her left breast began to feel weak. Patient states she had an episode of nausea and vomiting. The patient states she also noticed swelling in her left breast this morning. Patient denies any history of direct trauma. Patient gives her pain a score of 8/10. The patient states she had a similar episode in the right breast in November with symptoms which included a slight fever and pain for 1 day. The patient states she had a second episode in the right breast that included a slight fever and pain for 1 day. Patient states she never sought medical attention for the above complaints Location: [See above] Duration: [See above] Quality: Pain Severity: 8/10 Modifying factors: [see above] Context: [see above] Mode of transportation: [not driving] ED Past Medical Hx - Past Medical History Additional medical history: Lupus - Surgical History Additional Surgical History: - Family History Family history: no significant - Social History Smoking Status: Never Smoker Substance Use Type: None (denies illicit drug use) - Medications Home Medications: Home Medications Medication Instructions Recorded Confirmed Last Taken Type Labetalol [Normodyne TAB] 200 mg PO BID #30 tablet 06/05/17 Unknown Rx Nitrofurantoin Monohyd/M-Cryst 100 mg PO BID #14 capsule 06/08/17 Unknown Rx [Macrobid 100 mg Capsule] Ondansetron [Zofran TAB] 4 mg PO Q8HR PRN #10 tablet 12/01/17 Unknown Rx ED Review of Systems ROS: Stated complaint: LOWER BACK PAIN,LT BREAST PAIN, NAUSEOUS Other details as noted in HPI Constitutional: fever Eyes: denies: eye pain ENT: denies: throat pain Respiratory: no symptoms reported Cardiovascular: denies: chest pain Endocrine: no symptoms reported Gastrointestinal: nausea, vomiting Genitourinary: other (left breast pain) Musculoskeletal: denies: back pain Neurological: denies: headache Physical Exam - Physical Exam Vital Signs: Vital Signs 02/14/18 02/14/18 19:36 20:38 Temperature 102.9 F H Pulse Rate 137 H Respiratory 16 18 Rate Blood Pressure 137/97 O2 Sat by Pulse 100 Oximetry Physical Exam: GENERAL: The patient is well-developed well-nourished female lying on stretcher not appear to be in acute distress. [] HEENT: Normocephalic. Atraumatic. Extraocular motions are intact. Patient has moist mucous membranes. NECK: Supple. Trachea midline CHEST/LUNGS: Clear to auscultation. There is no respiratory distress noted. HEART/CARDIOVASCULAR: Regular. There is tachycardia. There is no gallop rub or murmur. ABDOMEN: Abdomen is soft, nontender. Patient has normal bowel sounds. There is no abdominal distention. SKIN: There is no rash. There is no edema. There is no diaphoresis. NEURO: The patient is awake, alert, and oriented. The patient is cooperative. The patient has normal speech MUSCULOSKELETAL: There is no evidence of acute injury. BREAST: Patient complains of pain to the lateral aspect of the mid body of the left breast. No region of fluctuance palpated. No definite erythema appreciated, Dr. skin pigmentation makes evaluation more difficult. No left axillary lymphadenopathy elevated the patient complains of trace discomfort in the left axilla ED Course Vital Signs 02/14/18 02/14/18 19:36 20:38 Temperature 102.9 F H Pulse Rate 137 H Respiratory 16 18 Rate Blood Pressure 137/97 O2 Sat by Pulse 100 Oximetry - Consultations Consultation #1: 02/15/18 00:57 ELECTRICAL MAINTENANCE ENGINEER paged 02/15/18 01:[address] Hitchcock- Will admit patient to mother baby. Recommends administering Bactrim po ED Medical Decision Making - Lab Data Result diagrams: 02/14/18 20:08 02/14/18 20:08 Laboratory Tests 02/14/18 02/14/18 02/14/18 19:48 20:08 20:08 WBC 19.0 H RBC 4.48 Hgb 11.2 Hct 35.4 MCV 79 MCH 25 L MCHC 32 RDW 15.7 H Plt Count 216 Add Manual Diff Complete Total Counted 100 Seg Neutrophils % Director [employer] Seg Neuts % (Manual) 66.0 Band Neutrophils % 24.0 Lymphocytes % (Manual) 6.0 L Reactive Lymphs % (Man) 0 Monocytes % (Manual) 4.0 Eosinophils % (Manual) 0 Basophils % (Manual) 0 Metamyelocytes % 0 Myelocytes % 0 Promyelocytes % 0 Blast Cells % 0 Nucleated RBC % Not Reportable Seg Neutrophils # Man 12.5 H Band Neutrophils # 4.6 Lymphocytes # (Manual) 1.1 L Abs React Lymphs (Man) 0.0 Monocytes # (Manual) 0.8 Eosinophils # (Manual) 0.0 Basophils # (Manual) 0.0 Metamyelocytes # 0.0 Myelocytes # 0.0 Promyelocytes # 0.0 Blast Cells # 0.0 WBC Morphology Not Reportable Hypersegmented Neuts Not Reportable Hyposegmented Neuts Not Reportable Hypogranular Neuts Not Reportable Smudge Cells Not Reportable Toxic Granulation Not Reportable Toxic Vacuolation Not Reportable Dohle Bodies Not Reportable Pelger-Huet Anomaly Not Reportable Riya Rods Not Reportable Platelet Estimate Appears normal Clumped Platelets Not Reportable Plt Clumps, EDTA Not Reportable Large Platelets Not Reportable Giant Platelets Not Reportable Platelet Satelliting Not Reportable Plt Morphology Comment Not Reportable RBC Morphology Not Reportable Dimorphic RBCs Not Reportable Polychromasia Not Reportable Hypochromasia 1+ Poikilocytosis Not Reportable Anisocytosis Not Reportable Microcytosis Not Reportable Macrocytosis Not Reportable Spherocytes Not Reportable Pappenheimer Bodies Not Reportable Sickle Cells Not Reportable Target Cells Not Reportable Tear Drop Cells Not Reportable Ovalocytes Not Reportable Helmet Cells Not Reportable [place] Bodies Not Reportable [place] Rings Not Reportable [place] Cells Not Reportable Bite Cells Not Reportable Crenated Cell Not Reportable Elliptocytes Not Reportable Acanthocytes (Spur) Not Reportable Rouleaux Not Reportable Hemoglobin C Crystals Not Reportable Schistocytes Not Reportable Malaria parasites Not Reportable Nguyễn Bodies Not Reportable Hem Pathologist Commnt No PT 15.8 H INR 1.21 H VBG pH Sodium Potassium Chloride Carbon Dioxide Anion Gap BUN Creatinine Estimated GFR BUN/Creatinine Ratio Glucose Lactic Acid Calcium Total Bilirubin AST ALT Alkaline Phosphatase Total Protein Albumin Albumin/Globulin Ratio Urine Color Yellow Urine Turbidity Slightly-cloudy Urine pH 6.0 Ur Specific [place] 1.030 Urine Protein >500 Urine Glucose (UA) Neg Urine Ketones Tr Urine Blood Sm Urine Nitrite Neg Urine Bilirubin Neg Urine Urobilinogen 2.0 Ur Leukocyte Esterase Tr Urine WBC (Auto) 6.0 Urine RBC (Auto) 5.0 U Epithel Cells (Auto) 1.0 Urine Mucus 1+ 09/02/14/18 02/14/18 20:08 20:08 20:08 WBC RBC Hgb Hct MCV MCH MCHC RDW Plt Count Add Manual Diff Total Counted Seg Neutrophils % Seg Neuts % (Manual) Band Neutrophils % Lymphocytes % (Manual) Reactive Lymphs % (Man) Monocytes % (Manual) Eosinophils % (Manual) Basophils % (Manual) Metamyelocytes % Myelocytes % Promyelocytes % Blast Cells % Nucleated RBC % Seg Neutrophils # Man Band Neutrophils # Lymphocytes # (Manual) Abs React Lymphs (Man) Monocytes # (Manual) Eosinophils # (Manual) Basophils # (Manual) Metamyelocytes # Myelocytes # Promyelocytes # Blast Cells # WBC Morphology Hypersegmented Neuts Hyposegmented Neuts Hypogranular Neuts Smudge Cells Toxic Granulation Toxic Vacuolation Dohle Bodies Pelger-Huet Anomaly Riya Rods Platelet Estimate Clumped Platelets Plt Clumps, EDTA Large Platelets Giant Platelets Platelet Satelliting Plt Morphology Comment RBC Morphology Dimorphic RBCs Polychromasia Hypochromasia Poikilocytosis Anisocytosis Microcytosis Macrocytosis Spherocytes Pappenheimer Bodies Sickle Cells Target Cells Tear Drop Cells Ovalocytes Helmet Cells [place] Bodies [place] Rings Lindsey Cells Bite Cells Crenated Cell Elliptocytes Acanthocytes (Spur) Rouleaux Hemoglobin C Crystals Schistocytes Malaria parasites Nguyễn Bodies Hem Pathologist Commnt PT INR VBG pH 7.331 Sodium 133 L Potassium 3.7 Chloride 98.1 Carbon Dioxide 21 L Anion Gap 18 BUN 11 Creatinine 0.7 Estimated GFR > 60 BUN/Creatinine Ratio 16 Glucose 106 H Lactic Acid 1.80 Calcium 9.1 Total Bilirubin 1.50 H AST 16 ALT 22 Alkaline Phosphatase 54 Total Protein 10.2 H Albumin 4.5 Albumin/Globulin Ratio 0.8 Urine Color Urine Turbidity Urine pH Ur Specific [place] Urine Protein Urine Glucose (UA) Urine Ketones Urine Blood Urine Nitrite Urine Bilirubin Urine Urobilinogen Ur Leukocyte Esterase Urine WBC (Auto) Urine RBC (Auto) U Epithel Cells (Auto) Urine Mucus 02/14/18 22:55 WBC RBC Hgb Hct MCV MCH MCHC RDW Plt Count Add Manual Diff Total Counted Seg Neutrophils % Seg Neuts % (Manual) Band Neutrophils % Lymphocytes % (Manual) Reactive Lymphs % (Man) Monocytes % (Manual) Eosinophils % (Manual) Basophils % (Manual) Metamyelocytes % Myelocytes % Promyelocytes % Blast Cells % Nucleated RBC % Seg Neutrophils # Man Band Neutrophils # Lymphocytes # (Manual) Abs React Lymphs (Man) Monocytes # (Manual) Eosinophils # (Manual) Basophils # (Manual) Metamyelocytes # Myelocytes # Promyelocytes # Blast Cells # WBC Morphology Hypersegmented Neuts Hyposegmented Neuts Hypogranular Neuts Smudge Cells Toxic Granulation Toxic Vacuolation Dohle Bodies Pelger-Huet Anomaly Riya Rods Platelet Estimate Clumped Platelets Plt Clumps, EDTA Large Platelets Giant Platelets Platelet Satelliting Plt Morphology Comment RBC Morphology Dimorphic RBCs Polychromasia Hypochromasia Poikilocytosis Anisocytosis Microcytosis Macrocytosis Spherocytes Pappenheimer Bodies Sickle Cells Target Cells Tear Drop Cells Ovalocytes Helmet Cells [place] Bodies [place] Rings [place] Cells Bite Cells Crenated Cell Elliptocytes Acanthocytes (Spur) Rouleaux Hemoglobin C Crystals Schistocytes Malaria parasites Nguyễn Bodies Hem Pathologist Commnt PT INR VBG pH Sodium Potassium Chloride Carbon Dioxide Anion Gap BUN Creatinine Estimated GFR BUN/Creatinine Ratio Glucose Lactic Acid 1.70 Calcium Total Bilirubin AST ALT Alkaline Phosphatase Total Protein Albumin Albumin/Globulin Ratio Urine Color Urine Turbidity Urine pH Ur Specific [place] Urine Protein Urine Glucose (UA) Urine Ketones Urine Blood Urine Nitrite Urine Bilirubin Urine Urobilinogen Ur Leukocyte Esterase Urine WBC (Auto) Urine RBC (Auto) U Epithel Cells (Auto) Urine Mucus - EKG Data -: EKG Interpreted by Me EKG shows normal: sinus rhythm Rate: tachycardia (125 bpm) - EKG Data When compared to previous EKG there are: previous EKG unavailable Interpretation: other (no ischemic changes seen) - Radiology Data Radiology results: report reviewed (chest x-ray left breast ultrasound), image reviewed (chest x-ray left breast ultrasound) interpreted by me: Chest x-ray-no focal infiltrates, no pneumothorax [facility] [address] [place] [address] XRay Report Signed Patient: ANIL KAM MR#: [id number] : 1995 Acct:[id number] Age/Sex: 22 / F ADM Date: 02/14/18 Loc: ED Attending Dr: Ordering Physician: ED MD RANDOLPH Date of Service: 02/14/18 Procedure(s): XR chest routine 2V Accession Number(s): [id number] cc: ED MD RANDOLPH Fluoro Time In Minutes: FINAL REPORT EXAM: XR CHEST ROUTINE 2V HISTORY: possible Sepsis TECHNIQUE: PA and lateral views of the chest Comparison: None FINDINGS: There is no evidence of infiltrate, pneumothorax or pleural fluid collection. The cardiomediastinal silhouette is normal in appearance. The bony structures are unremarkable. IMPRESSION: 1. No evidence of an acute pulmonary process. Transcribed By: ED Dictated By: SHIRIN ESCALERA MD Electronically Authenticated By: SHIRIN ESCALERA MD Signed Date/Time: 02/14/182031 DD/ 31 TD/TT: 02/14/182031 [facility] [address] [place] [id number] Ultrasound Report Signed Patient: ANIL KAM MR#: [id number] : 1995 Acct:[id number] Age/Sex: 22 / F ADM Date: 02/14/18 Loc: ED Attending Dr: Ordering Physician: RADHA SAMUEL MD Date of Service: 02/14/18 Procedure(s): US breast LT limited Accession Number(s): [id number] cc: RADHA SAMUEL MD FINAL REPORT PROCEDURE: US BREAST LT LIMITED TECHNIQUE: Real-time sonography in multiple planes of the LEFT breast was performed with image documentation; limited. HISTORY: left breast pain and fever. Evaluate for abscess COMPARISON: No prior studies are available for comparison. FINDINGS: LEFT breast: There is a 2 x 3 centimeter complex hypoechoic area in the lateral aspect of the left breast which could be edematous area of inflammation. No loculated fluid collection, cyst or abscess is seen. Clinical correlation suggested. IMPRESSION: There is a 2 x 3 centimeter complex hypoechoic area in the lateral aspect of the left breast which could be edematous area of inflammation such is focal mastitis. No loculated fluid collection, cyst or abscess is seen. Clinical correlation suggested. Transcribed By: CO Dictated By: NIKA MELENDEZ MD Electronically Authenticated By: NIKA MELENDEZ MD Signed Date/Time: 02/15/1833 DD/ TD/TT: 02/15/1833 - Differential Diagnosis breast abscess, mastitis, Critical care attestation.: If time is entered above; I have spent that time in minutes in the direct care of this critically ill patient, excluding procedure time. ED Disposition Clinical Impression: Acute breast pain, Mastitis, Fever, Bandemia Disposition: OP ADMIT IP TO THIS HOSP Is pt being admited?: Yes Does the pt Need Aspirin: Yes Condition: Fair Instructions: Chest Pain (ED) Referrals: PRIMARY CARE, [Primary Care Provider] - 3-5 Days Time of Disposition: 01:23
--- NOTE | 2018-02-15 00:35 | Ultrasound Report ---
FINAL REPORT PROCEDURE: US BREAST LT LIMITED TECHNIQUE: Real-time sonography in multiple planes of the LEFT breast was performed with image documentation; limited. HISTORY: left breast pain and fever. Evaluate for abscess COMPARISON: No prior studies are available for comparison. FINDINGS: LEFT breast: There is a 2 x 3 centimeter complex hypoechoic area in the lateral aspect of the left breast which could be edematous area of inflammation. No loculated fluid collection, cyst or abscess is seen. Clinical correlation suggested. IMPRESSION: There is a 2 x 3 centimeter complex hypoechoic area in the lateral aspect of the left breast which could be edematous area of inflammation such is focal mastitis. No loculated fluid collection, cyst or abscess is seen. Clinical correlation suggested.
[2018-02-15] MEDS ORDERED: BACTRIM DS PO ONE (01:23)
[2018-02-15] MEDS ORDERED: NACL 0.9% 1000 ML 1,000 ML IV SCH (02:00)
[2018-02-15] MEDS ORDERED: MOTRIN PO PRN (02:44)
[2018-02-15] MEDS ORDERED: SODIUM CHLORIDE FLUSH SYRINGE 10 ML IV PRN (02:44)
[2018-02-15] MEDS: FLAGYL 500 MG/100 ML 500 MG/100 ML BAG IV SCH ×3 (03:06→14:56)
[2018-02-15] MEDS: NACL 0.9% 1000 ML 1,000 ML IV SCH ×2 (05:17→16:07)
--- NOTE | 2018-02-15 06:36 | Event Note ---
Date: 02/15/18 (warranty manager note) Pt is febrile and tachycardic this AM Breasts are warm, left breast is painful to touch, pt states mostly on the outer aspect to the breast tail. Pt states she has not breast fed since September 2017. The fever and pain start 2 weeks before her menses. This is the 3rd time it has been this intense. Continue POC, encourage hydration. Consults placed to ID and breast care, as per 's recommendation. Pt aware and agrees with plan.
--- NOTE | 2018-02-15 06:36 | History and Physical Report ---
History of Present Illness Date of examination: 02/15/18 Date of admission: 02/15/18 02:45 Chief complaint: breast pain History of present illness: Pt presents to ER c/o 1 day h/o right breast pain with nausea and vomiting times one episode. She gives h/o of this pain in the left breast in November but did not get any treatment with spontaneous resolution. Pt is s/p delivery at [facility] after being transferred from [facility] due to severe pre E. She was seeing Dr. Heaven Sullivan prior to transfer. She has had temp since admission which has improved with antibx. Pt denies any breast feeding, breast injury and any previous episodes. Sono is c/w mastitis. As per [employer] Practice bulletin #164, treatment should be amoxicillin with clavalanic acid or if PCN allergic metronidazole with erythromycin. Pt has been given IV bactrim and IV flagyl has been given also. The Erythromycin is on back order and is not available IV and since pt is having n/v was not given po. Pt admitted for evaluation and treatment. 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 History: denies: abnormal PAP smear, chlamydia, fibroids Family/Genetic History: none Social history: no significant social history, - Obstetrical History : 2 Para: 2 Number of Pregnancies: 1 Number of Living Children: 2 Medications and Allergies Allergies Allergy/AdvReac Type Severity Reaction Status Date / Time amoxicillin AdvReac Angioedema Verified 11/30/17 18:31 Home Medications Medication Instructions Recorded Confirmed Last Taken Type Labetalol [Normodyne TAB] 200 mg PO BID #30 tablet 06/05/17 02/15/18 Unknown Rx Nitrofurantoin Monohyd/M-Cryst 100 mg PO BID #14 capsule 06/08/17 02/15/18 Unknown Rx [Macrobid 100 mg Capsule] Ondansetron [Zofran TAB] 4 mg PO Q8HR PRN #10 tablet 12/01/17 02/15/18 Unknown Rx Active Meds: Active Medications Acetaminophen (Tylenol) 650 mg PO Q4H PRN PRN Reason: Pain MILD(1-3)/Fever >100.5/BELCHER Metronidazole (Flagyl 500 Mg/100 Ml) 500 mg in 100 mls @ 100 mls/hr IV Q6H KESHIA ; Protocol Last Admin: 02/15/18 03:06 Dose: 100 mls/hr Sodium Chloride (Nacl 0.9% 1000 Ml) 1,000 mls @ 125 mls/hr IV DIRECT KESHIA Last Admin: 02/15/18 05:17 Dose: 125 mls/hr Ibuprofen (Motrin) 600 mg PO Q6H PRN PRN Reason: Pain, Mild (1-3) Sodium Chloride (Sodium Chloride Flush Syringe 10 Ml) 10 ml IV BID KESHIA Sodium Chloride (Sodium Chloride Flush Syringe 10 Ml) 10 ml IV PRN PRN PRN Reason: LINE FLUSH Review of Systems All systems: negative - Vital Signs Vital signs: Vital Signs Temp Pulse Resp BP Pulse Ox 102.9 F H 137 H 16 137/97 100 02/14/18 19:36 02/14/18 19:36 02/14/18 19:36 02/14/18 19:36 02/14/18 19:36 Temp Pulse Resp BP Pulse Ox 100.4 F H 119 H 18 124/73 100 02/15/18 04:45 02/15/18 04:45 02/15/18 04:45 02/15/18 04:45 02/15/18 04:45 - Physical Exam Breasts: Positive: swelling, tender, other (left breast appears larger than right. no masses palpated. no nipple drainage noted. warm to touch. no erythema noted) Cardiovascular: Normal S1, Normal S2 Lungs: Positive: Clear to auscultation, Normal air movement Abdomen: Positive: normal appearance, soft. Negative: distention, tenderness, guarding Genitourinary (Female): Positive: other (deferred as pt has no gynecological assistant c/o) Results Result Diagrams: 02/14/18 20:08 02/14/18 20:08 Abnormal lab results 02/14/18 02/14/18 02/14/18 Range/Units 20:08 20:08 20:08 WBC 19.0 H (4.5-11.0) K/mm3 MCH 25 L (28-32) pg RDW 15.7 H (13.2-15.2) % Lymphocytes % (Manual) 6.0 L (13.4-35.0) % Seg Neutrophils # Man 12.5 H (1.8-7.7) K/mm3 Lymphocytes # (Manual) 1.1 L (1.2-5.4) K/mm3 PT 15.8 H (12.2-14.9) Sec. INR 1.21 H (0.87-1.13) Sodium 133 L (137-145) mmol/L Carbon Dioxide 21 L (22-30) mmol/L Glucose 106 H (65-100) mg/dL Total Bilirubin 1.50 H (0.1-1.2) mg/dL Total Protein 10.2 H (6.3-8.2) g/dL All other labs normal. Assessment and Plan - Patient Problems (1) Acute breast pain Current Visit: Yes Status: Acute (2) Mastitis Current Visit: Yes Status: Acute Plan to address problem: -recurrent -ID consultation for recommendations regarding antibx therapy -blood and urine cx are pending - -Will consult breast specialist (3) Fever Current Visit: Yes Status: Acute Plan to address problem: -cont current antibx -await input form ID regarding treatment
[2018-02-15] MEDS ORDERED: SODIUM CHLORIDE FLUSH SYRINGE 10 ML IV SCH (10:00)
--- NOTE | 2018-02-15 12:22 | Event Note ---
Date: 02/15/18 (consults) Left a detailed message for to please see pt. Gave her details of pts issues. Spoke with She will see the pt and asks that I start pt on Vancomycin DONE
[2018-02-15] MEDS ORDERED: VANCOMYCIN 1,250 MG in NACL 0.9% 250ML 250 ML IV ONE (13:00)
[2018-02-15] MEDS ORDERED: VANCOMYCIN/NS 1 GM/250 ML 1 GM/250 ML BAG IV SCH (13:00)
[2018-02-15] MEDS: TYLENOL PO PRN ×2 (14:19→19:51)
--- NOTE | 2018-02-15 14:42 | Consultation ---
History of Present Illness - Reason for Consult Consult date: 02/15/18 mastitis Requesting physician: MARVIN WELLS - History of Present Illness 22 y/o female with history of delivery at [place] on 07/27/17 after being transferred from [facility] due to severe pre-eclampsia. Patient developed severe right breast pain and swelling after restarting breast-feeding back in September 2017. It seems like pain breast swelling improved after she stopped breast- feeding. Patient has been admitted on 02/14/2018 due to 24 hours history of severe right breast pain and swelling associated with fever, chills, nausea and vomiting. Patient denies any recent trauma or injury. In the ED, initial temperature 102.9, heart rate 137, respirations 16, O2 sat 100, blood pressure 137/97. Initial white count 19. Bands 24%. Hemoglobin 11.2. Platelets 216. Lactate 1.8. Creatinine 0.7. Urinalysis is negative. Breast ultrasound showed 2 x 2 centimeter complex hypoechoic area on the lateral left breast. Chest x-ray negative. Microbiology: Blood cultures: 02/14 ngtd Current Antimicrobials: Vanco Clindamycin Previous Antimicrobials: Past History Past Medical History: other (pre-eclampsia) Past Surgical History: No surgical history Social history: no significant social history, Medications and Allergies Allergies Allergy/AdvReac Type Severity Reaction Status Date / Time amoxicillin Allergy Intermediate Angioedema Verified 02/15/18 12:25 Home Medications Medication Instructions Recorded Confirmed Last Taken Type Labetalol [Normodyne TAB] 200 mg PO BID #30 tablet 06/05/17 02/15/18 Unknown Rx Nitrofurantoin Monohyd/M-Cryst 100 mg PO BID #14 capsule 06/08/17 02/15/18 Unknown Rx [Macrobid 100 mg Capsule] Ondansetron [Zofran TAB] 4 mg PO Q8HR PRN #10 tablet 12/01/17 02/15/18 Unknown Rx Active Meds: Active Medications Acetaminophen (Tylenol) 650 mg PO Q4H PRN PRN Reason: Pain MILD(1-3)/Fever >100.5/BELCHER Last Admin: 02/15/18 14:19 Dose: 650 mg Metronidazole (Flagyl 500 Mg/100 Ml) 500 mg in 100 mls @ 100 mls/hr IV Q6H [facility] ; Protocol Last Admin: 02/15/18 09:00 Dose: 100 mls/hr Sodium Chloride (Nacl 0.9% 1000 Ml) 1,000 mls @ 125 mls/hr IV DIRECT [facility]ESHIA Last Admin: 02/15/18 05:17 Dose: 125 mls/hr Vancomycin HCl (Vancomycin/Ns 1 Gm/250 Ml) 1 gm in 250 mls @ 166.667 mls/hr IV Q12H [facility] Ibuprofen (Motrin) 600 mg PO Q6H PRN PRN Reason: Pain, Mild (1-3) Sodium Chloride (Sodium Chloride Flush Syringe 10 Ml) 10 ml IV BID [facility] Sodium Chloride (Sodium Chloride Flush Syringe 10 Ml) 10 ml IV PRN PRN PRN Reason: LINE FLUSH Physical Examination - Physical Exam Narrative exam: General appearance: Alert in NAD, conversant Eyes: anicteric sclerae, moist conjunctivae; no lid-lag; PERRLA HENT: Atraumatic; oropharynx clear with moist mucous membranes and no mucosal ulcerations/no oral thrush; normal hard and soft palate. Normal external ears. Neck: Trachea midline; supple, no thyromegaly or lymphadenopathy Lungs: CTA, with normal respiratory effort and no intercostal retractions CV: RRR, no murmurs Abdomen: Soft, non-tender; no masses or hepatosplenomegaly Extremities: No peripheral edema or extremity lymphadenopathy Skin: Normal temperature, turgor and texture; no rash, ulcers or subcutaneous nodules. + left breast edema and tenderness Psych: Appropriate affect, alert and oriented to person, place and time. Neuro: alert and oriented x 3. Moving all extermities Lines: No CVL / PICC - Constitutional Vitals: Vital Signs Temp Pulse Resp BP Pulse Ox 99 F 110 H 20 144/94 100 02/15/18 13:35 02/15/18 13:35 02/15/18 12:55 02/15/18 12:55 02/15/18 04:45 Temperature -Last 24 Hours Temperature 99 F Temperature 100 F Temperature 99.7 F Temperature 100.4 F Temperature 99.8 F Temperature 99.5 F Temperature 99.7 F Temperature 102.9 F Results - Labs CBC & Chem 7: 02/14/18 20:08 02/14/18 20:08 Labs: Abnormal lab results 02/14/18 02/14/18 02/14/18 Range/Units 20:08 20:08 20:08 WBC 19.0 H (4.5-11.0) K/mm3 MCH 25 L (28-32) pg RDW 15.7 H (13.2-15.2) % Lymphocytes % (Manual) 6.0 L (13.4-35.0) % Seg Neutrophils # Man 12.5 H (1.8-7.7) K/mm3 Lymphocytes # (Manual) 1.1 L (1.2-5.4) K/mm3 PT 15.8 H (12.2-14.9) Sec. INR 1.21 H (0.87-1.13) Sodium 133 L (137-145) mmol/L Carbon Dioxide 21 L (22-30) mmol/L Glucose 106 H (65-100) mg/dL Total Bilirubin 1.50 H (0.1-1.2) mg/dL Total Protein 10.2 H (6.3-8.2) g/dL Assessment and Plan Assessment: 1) Sepsis: Present on admission, manifested by fever, tachycardia, leukocytosis , bandemia. Etiology most likely left breast mastitis. 2) Left sided mastitis vs early abscess: -Delivery at [place] on 07/27/17 after being transferred from [facility] due to severe preclampsia. -Breast ultrasound showed 2 x 2 centimeter complex hypoechoic area on the lateral left breast. 3) Amoxicilin allergy causing lip swelling - pt has taken keflex w/o reactions Plan: -follow-up blood cultures -continue vanco and clindamycin for GPC and anaerobes -add aztreonam for GNB -CRP -Breast surgery consult -Monitor fever and leukocytosis Thank you for your consultation, will follow up with you. Kristen Tovar MD Infectious Diseases Specialist [facility] ([facility]) M [phone] O [phone]
--- NOTE | 2018-02-15 16:40 | Event Note ---
Date: 02/15/18 (HCG >900) Spoke with pt by phone She states her LMP was 8-20-18 and it was normal BHCG drawn today [address] Anderson Will continue POC as noted. Will make sure there is adequate shielding for CXR
[2018-02-15] MEDS: CLEOCIN 600 MG/50 mL 600 MG/50 ML BAG IV SCH (18:07)
[2018-02-15] MEDS: AZACTAM/NS 2 GM/100 ML 2 GM/100 ML VIAL IV SCH (19:15)
[2018-02-16] MEDS: VANCOMYCIN/NS 1 GM/250 ML 1 GM/250 ML BAG IV SCH ×2 (01:40→13:33)
[2018-02-16] MEDS: CLEOCIN 600 MG/50 mL 600 MG/50 ML BAG IV SCH ×3 (03:50→20:35)
[2018-02-16] MEDS: NACL 0.9% 1000 ML 1,000 ML IV SCH ×4 (03:55→19:07)
[2018-02-16] MEDS: AZACTAM/NS 2 GM/100 ML 2 GM/100 ML VIAL IV SCH (04:25)
--- NOTE | 2018-02-16 08:42 | Event Note ---
Date: 02/16/18 (pt sleeping soundly) Spoke with this AM She feels further evaluation may be indicated. She will place the order if necessary. Noted that pt's BP are elevated diastolic are in the 90 systolic 150-130 Pt denies BELCHER, blurred vision, chest pain. made aware
[2018-02-16 09:15] LABS: Hematocrit 25.2 % (30.3-42.9); Hemoglobin 8.2 gm/dl (10.1-14.3); Mean Corpuscular HGB Conc 33 % (30-34); Mean Corpuscular Hemoglobin 26 pg (28-32); Mean Corpuscular Volume 78 fl (79-97); Platelet Count 125 K/mm3 (140-440); Red Blood Count 3.23 M/mm3 (3.65-5.03); Red Cell Distribution Width 16.1 % (13.2-15.2)
[2018-02-16 09:16] LABS: Basophils % (Auto) 0.3 % (0.0-1.8); Eosinophils # (Auto) 0.1 K/mm3 (0.0-0.4); Eosinophils % (Auto) 0.8 % (0.0-4.3); Lymphocytes # (Auto) 1.1 K/mm3 (1.2-5.4); Lymphocytes % (Auto) 11.6 % (13.4-35.0); Monocytes # (Auto) 0.5 K/mm3 (0.0-0.8); Monocytes % (Auto) 5.6 % (0.0-7.3)
--- NOTE | 2018-02-16 10:00 | Progress Note ---
Assessment and Plan - Patient Problems (1) Acute breast pain Current Visit: Yes Status: Acute (2) Mastitis Current Visit: Yes Status: Acute Plan to address problem: -cont anitbx -await recommendations from breast surgeon (3) Fever Current Visit: Yes Status: Acute (4) Hypertension Current Visit: No Status: Chronic Qualifiers: Hypertension type: essential hypertension Qualified Code(s): I10 - Essential (primary) hypertension Plan to address problem: -will start bp meds at this time Subjective - Subjective Date of service: 02/16/18 Principal diagnosis: HD #2 s/p admission for recurrent mastitis, fever Interval history: Pt states she is feeling better today. She has no c/o. I d/w findings and discussion with Dr. Zimmerman. Pt voiced understanding. Patient reports: appetite normal, voiding normally, pain well controlled Objective - Vital Signs Latest vital signs: Vital Signs Temp Pulse Pulse Resp BP BP Pulse Ox 02/16/18 08:52 99.3 F 106 H 18 151/100 98 02/16/18 04:00 98.7 F 102 H 16 147/99 02/16/18 00:00 98.7 F 94 H 16 134/94 02/15/18 19:30 98.7 F 70 89 18 152/93 02/15/18 16:40 98.7 F 101 H 20 151/95 02/15/18 13:35 99 F 110 H 02/15/18 12:55 100 F H 111 H 20 144/94 Intake and Output 02/15/18 02/16/18 02/16/18 22:59 06:59 14:59 Intake Total 510 1300 654.167 Balance 510 1300 654.167 Intake: IV 150 1000 654.167 AZACTAM/NS 2 GM/100 ML 2 100 gm In 100 ml @ 100 mls/hr IV Q8H [facility] Rx#:[id number] CLEOCIN 600 MG/50 mL 600 50 mg In 50 ml @ 100 mls/hr IV Q8H [facility] Rx#:[id number] NaCl 0.9% 1000 ml 1,000 1000 654.167 ml @ 125 mls/hr IV DIRECT KESHIA Rx#:[id number] Oral 360 Intake, Free Water 300 Other: Total, Intake Amount 360 Voiding Method Toilet # Voids Void 2 - Exam Breasts: Present: other (unchanged from 02/15/18 when I examined pt) Lungs: Present: Clear to auscultation Abdomen: Present: normal appearance, soft. Absent: distention, tenderness, guarding - Labs Labs: Abnormal lab results 02/15/18 02/15/18 02/16/18 Range/Units 14:40 14:40 08:19 RBC 3.23 L (3.65-5.03) M/mm3 Hgb 8.2 L D (10.1-14.3) gm/dl Hct 25.2 L D (30.3-42.9) % MCV 78 L (79-97) fl MCH 26 L (28-32) pg RDW 16.1 H (13.2-15.2) % Plt Count 125 L (140-440) K/mm3 Lymph % (Auto) 11.6 L (13.4-35.0) % Lymph # 1.1 L (1.2-5.4) K/mm3 Seg Neutrophils % 81.7 H (40.0-70.0) % C-Reactive Protein 19.50 H (0.00-1.30) mg/dL HCG, Quant 956.7 H (0-4) mIU/mL
[2018-02-16] MEDS: TYLENOL PO PRN ×2 (10:40→20:43)
--- NOTE | 2018-02-16 10:54 | Progress Note ---
Assessment and Plan Assessment: 1) Sepsis: fever and leukocytosis resolved. Etiology most likely left breast mastitis. 2) Left sided mastitis vs early abscess: -Delivery at [place] on 07/27/17 after being transferred from [facility] due to severe preclampsia. -Breast ultrasound showed 2 x 2 centimeter complex hypoechoic area on the lateral left breast. -CRP=19.5 3) Amoxicilin allergy causing lip swelling - pt has taken keflex w/o reactions 4) ? Plan: -follow-up blood cultures -continue vanco and clindamycin for GPC and anaerobes -stop aztreonam- doubt GNB -Breast surgery consult - pending -if she continues to improve ok to d/c home on clindamycin 300mg PO TID total 10 days Thank you for your consultation, will follow up with you. Kristen Tovar MD Infectious Diseases Specialist [facility] ([facility]) M [phone] O [phone] Subjective Date of service: 02/16/18 Principal diagnosis: HD #2 s/p admission for recurrent mastitis, fever Interval history: Feels better, fever resolved. Breast pain /10 this am which is better. Microbiology: Blood cultures: 02/14 ngtd Urine culture: 02/14 10-100K multiple sp Current Antimicrobials: Vanco Clindamycin aztreonam Previous Antimicrobials: Objective - Exam Narrative Exam: General appearance: Alert in NAD, conversant Eyes: anicteric sclerae, moist conjunctivae; no lid-lag; PERRLA HENT: Atraumatic; oropharynx clear with moist mucous membranes and no mucosal ulcerations/no oral thrush; normal hard and soft palate. Normal external ears. Neck: Trachea midline; supple, no thyromegaly or lymphadenopathy Lungs: CTA, with normal respiratory effort and no intercostal retractions CV: RRR, no murmurs Abdomen: Soft, non-tender; no masses or hepatosplenomegaly Extremities: No peripheral edema or extremity lymphadenopathy Skin: . + left breast edema and tenderness better Psych: Appropriate affect, alert and oriented to person, place and time. Neuro: alert and oriented x 3. Moving all extermities Lines: No CVL / PICC - Constitutional Vitals: Vital Signs Temp Pulse Resp BP Pulse Ox 99.3 F 106 H 18 151/100 98 02/16/18 08:52 02/16/18 08:52 02/16/18 08:52 02/16/18 08:52 02/16/18 08:52 Temperature -Last 24 Hours Temperature 99.3 F Temperature 98.7 F Temperature 98.7 F Temperature 98.7 F Temperature 98.7 F Temperature 99 F Temperature 100 F - Labs CBC & Chem 7: 02/16/18 08:19 02/14/18 20:08 Labs: Abnormal lab results 02/15/18 02/15/18 02/16/18 Range/Units 14:40 14:40 08:19 RBC 3.23 L (3.65-5.03) M/mm3 Hgb 8.2 L D (10.1-14.3) gm/dl Hct 25.2 L D (30.3-42.9) % MCV 78 L (79-97) fl MCH 26 L (28-32) pg RDW 16.1 H (13.2-15.2) % Plt Count 125 L (140-440) K/mm3 Lymph % (Auto) 11.6 L (13.4-35.0) % Lymph # 1.1 L (1.2-5.4) K/mm3 Seg Neutrophils % 81.7 H (40.0-70.0) % C-Reactive Protein 19.50 H (0.00-1.30) mg/dL HCG, Quant 956.7 H (0-4) mIU/mL
[2018-02-16] MEDS ORDERED: NORMODYNE PO SCH (11:00)
--- NOTE | 2018-02-16 17:49 | Consultation ---
History of Present Illness Consult date: 02/16/18 Reason for consult: other (Left breast mastitis) - History of present illness History of present illness: This is a 22 year old lady with a 2 day history of left breast pain and swelling. She was recently admitted for left breast mastitis and started on Abx. Patient admitted for sepsis with presumed left breast infection. Left breast ultrasound obtained yesterday with no findings of an abscess and probable findings of mastitis of the lateral breast. Patient reports continued left breast pain. She has a history of being treated for right breast mastitis this past Spring shortly following her delivery in July 2017. She denies a family history of breast, ovarian, prostate or colon cancer. Recent test at admission positive. Past History Past Medical History: other (pre-eclampsia) Past Surgical History: No surgical history Social history: no significant social history, Medications and Allergies Allergies Allergy/AdvReac Type Severity Reaction Status Date / Time amoxicillin Allergy Intermediate Angioedema Verified 02/15/18 12:25 Home Medications Medication Instructions Recorded Confirmed Last Taken Type Labetalol [Normodyne TAB] 200 mg PO BID #30 tablet 06/05/17 02/15/18 Unknown Rx Nitrofurantoin Monohyd/M-Cryst 100 mg PO BID #14 capsule 06/08/17 02/15/18 Unknown Rx [Macrobid 100 mg Capsule] Ondansetron [Zofran TAB] 4 mg PO Q8HR PRN #10 tablet 12/01/17 02/15/18 Unknown Rx Active Meds: Active Medications Acetaminophen (Tylenol) 650 mg PO Q4H PRN PRN Reason: Pain MILD(1-3)/Fever >100.5/BELCHER Last Admin: 02/16/18 10:40 Dose: 650 mg Sodium Chloride (Nacl 0.9% 1000 Ml) 1,000 mls @ 125 mls/hr IV DIRECT KESHIA Last Admin: 02/16/18 11:12 Dose: 125 mls/hr Vancomycin HCl (Vancomycin/Ns 1 Gm/250 Ml) 1 gm in 250 mls @ 166.667 mls/hr IV Q12H [facility] Last Admin: 02/16/18 13:33 Dose: 166.667 mls/hr Clindamycin HCl (Cleocin 600 Mg/50 Ml) 600 mg in 50 mls @ 100 mls/hr IV Q8H KESHIA ; Protocol Last Admin: 02/16/18 12:13 Dose: 100 mls/hr Ibuprofen (Motrin) 600 mg PO Q6H PRN PRN Reason: Pain, Mild (1-3) Labetalol HCl (Normodyne) 100 mg PO BID [facility] Last Admin: 02/16/18 11:12 Dose: 100 mg Sodium Chloride (Sodium Chloride Flush Syringe 10 Ml) 10 ml IV BID [facility] Sodium Chloride (Sodium Chloride Flush Syringe 10 Ml) 10 ml IV PRN PRN PRN Reason: LINE FLUSH Review of Systems All systems: negative - Breasts left: other (left breast pain an swelling) swelling, skin changes, tender Exam Vital Signs Temp Pulse Resp BP Pulse Ox 102.9 F H 137 H 16 137/97 100 02/14/18 19:36 02/14/18 19:36 02/14/18 19:36 02/14/18 19:36 02/14/18 19:36 - General physical appearance Positive: well developed, well nourished, no distress - Eyes Positive: PERRL, normal occular movement - ENT Positive: normal pinna, normal nares, normal mucosa, no hearing loss, no congestion - Neck Positive: no masses, no bruits, trachea midline, no lymphadectomy, no venous distension - Respiratory Positive: normal expansion - Cardiovascular Rhythm: regular - Extremities Extremities: no ischemia, pulses intact, pulses symmetrical, No edema, normal temperature, normal color, Full ROM Peripheral Pulses: within normal limits - Breasts Breasts: other (left breast edema noted and significant left breast larger size ; tenderness noted around the 2-5:00 positions with mild erythema, skin intact; probable ezcema of left lower inner breast and upper abdomen-per patient has been present for over 2 months; left lateral breast skin thickening; palpable enlarged left axillary lymph node) - Abdomen Abdomen: Present: soft - Genitourinary Female Genitourinary: deferred - Integumentary no rash, no growths, no abnormal pigmentation - Neurologic Neurologic: alert and oriented to time, place and person, motor strength and sensation are grossly intact, CN II-XII intact - Psychiatric Psychiatric: appropriate mood/affect, intact judgment & insight, memory intact, cooperative Results - Labs 02/16/18 08:19 02/14/18 20:08 Abnormal lab results 02/15/18 02/16/18 Range/Units 14:40 08:19 RBC 3.23 L (3.65-5.03) M/mm3 Hgb 8.2 L D (10.1-14.3) gm/dl Hct 25.2 L D (30.3-42.9) % MCV 78 L (79-97) fl MCH 26 L (28-32) pg RDW 16.1 H (13.2-15.2) % Plt Count 125 L (140-440) K/mm3 Lymph % (Auto) 11.6 L (13.4-35.0) % Lymph # 1.1 L (1.2-5.4) K/mm3 Seg Neutrophils % 81.7 H (40.0-70.0) % C-Reactive Protein 19.50 H (0.00-1.30) mg/dL Assessment and Plan This is a 22 year old lady recently admitted left breast mastitis. Physical exam findings probable for left breast mastitis but can not rule out malignancy. Exam findings noted for edema with skin thickening more pronounced of the lateral breast and palpable enlarged left axillary lymph node. If no improvement in clinical exam, will possibly repeat breast ultrasound. Patient will need follow-up exam and diagnostic imaging once discharged. Recommend warm compresses to the left breast and continue with antibiotics. Will follow with you.
[2018-02-16] MEDS ORDERED: NORMODYNE PO ONE (20:10)
--- NOTE | 2018-02-16 20:16 | Event Note ---
Date: 02/16/18 (noted elevated BP) made aware of elevated blood pressures. Instructed to confirm pt did receive her initial dose of Labetalol and she did. Order written to receive 100mg now and increase the scheduled dose to 200mg BID done. RN made aware of change.
[2018-02-16] MEDS: NORMODYNE PO SCH (23:12)
[2018-02-17] MEDS: VANCOMYCIN/NS 1 GM/250 ML 1 GM/250 ML BAG IV SCH ×2 (01:05→17:10)
[2018-02-17] MEDS: CLEOCIN 600 MG/50 mL 600 MG/50 ML BAG IV SCH ×2 (03:33→14:51)
[2018-02-17] MEDS: NORMODYNE PO SCH (08:11)
[2018-02-17] MEDS: NACL 0.9% 1000 ML 1,000 ML IV SCH (08:11)
--- NOTE | 2018-02-17 09:43 | Progress Note ---
Assessment and Plan Will repeat CBC, if stable allow home with f/u with Dr. Carter - Patient Problems (1) Current Visit: Yes Status: Acute Plan to address problem: Early, diagnosed at this admission, LMP 01/15/2018 She states she will follow up with [facility] at discharge (2) Anemia Current Visit: Yes Status: Chronic (3) Thrombocytopenia Current Visit: Yes Status: Acute Plan to address problem: Repeat cbc (4) Acute breast pain Current Visit: Yes Status: Acute Plan to address problem: Improved (5) Fever Current Visit: Yes Status: Resolved Plan to address problem: No fever x48hrs (6) Mastitis Current Visit: Yes Status: Acute Plan to address problem: Managed by Dr. Carter (7) Hypertension Current Visit: No Status: Chronic Qualifiers: Hypertension type: essential hypertension Qualified Code(s): I10 - Essential (primary) hypertension Plan to address problem: Continue labetalol (8) Lupus (systemic lupus erythematosus) Current Visit: No Status: Chronic Qualifiers: Systemic lupus erythematosus type: unspecified Subjective - Subjective Date of service: 02/17/18 Principal diagnosis: HD #3 s/p admission for recurrent mastitis, fever Interval history: Feels much better, denies bleeding, N/V Patient reports: appetite normal, voiding normally, ambulating normally Objective - Vital Signs Latest vital signs: Vital Signs Temp Pulse Resp BP Pulse Ox 02/17/18 03:18 98.7 F 91 H 16 142/94 100 02/16/18 23:39 20 02/16/18 23:12 98 H 169/101 02/16/18 23:06 99.0 F 89 18 169/111 100 02/16/18 20:34 98 H 169/101 02/16/18 19:34 99.1 F 88 16 168/104 100 02/16/18 15:42 98.5 F 87 18 150/93 100 02/16/18 11:19 99.0 F 107 H 18 150/99 100 02/16/18 11:12 106 H 151/100 Intake and Output 02/16/18 02/17/18 02/17/18 22:59 06:59 14:59 Intake Total 1692.5 1500 Balance 1692.5 1500 Intake: IV 1212.5 1300 CLEOCIN 600 MG/50 mL 600 50 50 mg In 50 ml @ 100 mls/hr IV Q8H [facility] Rx#:[id number] NaCl 0.9% 1000 ml 1,000 912.5 1000 ml @ 125 mls/hr IV DIRECT [facility] Rx#:[id number] VANCOMYCIN/NS 1 GM/250 ML 250 250 1 gm In 250 ml @ 166.667 mls/hr IV Q12H [facility] Rx#: [id number] Oral 480 200 Other: Total, Intake Amount 480 200 Voiding Method Toilet Toilet # Voids Void 2 - Exam Breasts: Present: deferred (managed by Dr. Carter) Lungs: Present: Normal air movement
[2018-02-17] MEDS ORDERED: APRESOLINE IV ONE ×2 (11:00→20:28)
[2018-02-17 11:10] LABS: Hematocrit 22.9 % (30.3-42.9); Hemoglobin 7.7 gm/dl (10.1-14.3); Mean Corpuscular HGB Conc 34 % (30-34); Mean Corpuscular Hemoglobin 26 pg (28-32); Mean Corpuscular Volume 78 fl (79-97); Platelet Count 141 K/mm3 (140-440); Red Blood Count 2.95 M/mm3 (3.65-5.03)
--- NOTE | 2018-02-17 12:59 | Progress Note ---
Assessment and Plan This is a 22 year old lady recently admitted left breast mastitis. 1. Physical exam stable for left breast mastitis but can not rule out malignancy. Patient will need follow-up ultrasound during current admission or once discharged. Can not obtain mammogram given 1st trimester . 2. Recommend cont with warm compresses to the breast. 3. Recommend cont with abx. 4. Repeat CBC from this am pending. Subjective Date of service: 02/17/18 Principal diagnosis: HD #3 s/p admission for recurrent mastitis, fever Interval history: This is a 22 year old lady with current hosp admision for left breast mastitis Objective - Constitutional Vitals: Vital Signs - 12hr 02/17/18 02/17/18 02/17/18 03:18 09:50 10:30 Temperature 98.7 F 98.5 F Pulse Rate 91 H 89 83 Respiratory 16 20 20 Rate Blood Pressure 142/94 Blood Pressure 160/107 168/109 [Left] O2 Sat by Pulse 100 Oximetry 02/17/18 02/17/18 02/17/18 10:50 10:55 11:00 Temperature Pulse Rate 92 H 96 H 94 H Respiratory 20 20 20 Rate Blood Pressure Blood Pressure 159/106 145/101 142/97 [Left] O2 Sat by Pulse Oximetry 02/17/18 02/17/18 02/17/18 11:15 11:30 11:43 Temperature Pulse Rate 105 H 100 H Respiratory 20 20 22 Rate Blood Pressure Blood Pressure 150/101 143/94 [Left] O2 Sat by Pulse Oximetry 02/17/18 02/17/18 02/17/18 11:45 12:00 12:30 Temperature 98.8 F Pulse Rate 100 H 101 H 102 H Respiratory 22 22 20 Rate Blood Pressure Blood Pressure 143/95 156/102 148/95 [Left] O2 Sat by Pulse Oximetry General appearance: Present: no acute distress - EENT Eyes: PERRL, EOM intact ENT: hearing intact, clear oral mucosa, dentition normal Ears: bilateral: normal - Neck Neck: supple, normal ROM - Respiratory Respiratory effort: normal Respiratory: bilateral: CTA - Breasts Breasts: other (left breast stable erythema of the later breast; palpable asymmetery at the 4:00 position 5-6 cm from the nipple; palpable left axillary lymph node; NT, stable edema with skin thickening) - Cardiovascular Rhythm: regular Extremities: no ischemia, pulses intact, pulses symmetrical - Gastrointestinal General gastrointestinal: Present: soft, non-tender, non-distended Rectal Exam: deferred - Genitourinary Female genitourinary: deferred - Integumentary Integumentary: clear, warm, dry - Musculoskeletal Musculoskeletal: strength equal bilaterally - Neurologic Neurologic: CNII-XII intact, moves all extremities - Psychiatric Psychiatric: appropriate mood/affect, intact judgment & insight, memory intact, cooperative - Labs CBC & Chem 7: 02/17/18 10:49 02/14/18 20:08 Labs: Abnormal lab results 02/17/18 Range/Units 10:49 WBC 3.5 L (4.5-11.0) K/mm3 RBC 2.95 L (3.65-5.03) M/mm3 Hgb 7.7 L (10.1-14.3) gm/dl Hct 22.9 L (30.3-42.9) % MCV 78 L (79-97) fl MCH 26 L (28-32) pg RDW 16.0 H (13.2-15.2) %
[2018-02-17] MEDS ORDERED: NORMODYNE PO SCH ×2 (14:00→18:36)
--- NOTE | 2018-02-17 16:00 | Progress Note ---
Assessment and Plan Assessment: 1) Sepsis: fever and leukocytosis resolved. Etiology most likely left breast mastitis. 2) Left sided mastitis vs early abscess: -Delivery at [place] on 07/27/17 after being transferred from [facility] due to severe preclampsia. -Breast ultrasound showed 2 x 2 centimeter complex hypoechoic area on the lateral left breast. -CRP=19.5 3) Amoxicilin allergy causing lip swelling - pt has taken keflex w/o reactions 4) Plan: -continue vanco and clindamycin -needs follow-up ultrasound per Dr Joyner and f/u with her -ok to d/c home on clindamycin 300mg PO TID total 10 days until 02/24/18 I am signing off Thank you for your consultation, will follow up with you. Kristen Tovar MD Infectious Diseases Specialist [facility] ([facility]) M [phone] O [phone] Subjective Date of service: 02/17/18 Principal diagnosis: HD #3 s/p admission for recurrent mastitis, fever Interval history: Feels better, fever resolved. Breast pain resolved. Microbiology: Blood cultures: 02/14 neg Urine culture: 02/14 10-100K multiple sp Current Antimicrobials: Vanco Clindamycin Previous Antimicrobials: aztreonam Objective - Exam Narrative Exam: General appearance: Alert in NAD, conversant Eyes: anicteric sclerae, moist conjunctivae; no lid-lag; PERRLA HENT: Atraumatic; oropharynx clear with moist mucous membranes and no mucosal ulcerations/no oral thrush; normal hard and soft palate. Normal external ears. Neck: Trachea midline; supple, no thyromegaly or lymphadenopathy Lungs: CTA, with normal respiratory effort and no intercostal retractions CV: RRR, no murmurs Abdomen: Soft, non-tender; no masses or hepatosplenomegaly Extremities: No peripheral edema or extremity lymphadenopathy Skin: . + left breast edema and tenderness better Psych: Appropriate affect, alert and oriented to person, place and time. Neuro: alert and oriented x 3. Moving all extermities Lines: No CVL / PICC - Constitutional Vitals: Vital Signs Temp Pulse Resp BP Pulse Ox 98.8 F 102 H 20 148/95 100 02/17/18 12:00 02/17/18 12:30 02/17/18 12:30 02/17/18 12:30 02/17/18 03:18 Temperature -Last 24 Hours Temperature 98.8 F Temperature 98.5 F Temperature 98.7 F Temperature 99.0 F Temperature 99.1 F - Labs CBC & Chem 7: 02/17/18 10:49 02/14/18 20:08 Labs: Abnormal lab results 02/17/18 Range/Units 10:49 WBC 3.5 L (4.5-11.0) K/mm3 RBC 2.95 L (3.65-5.03) M/mm3 Hgb 7.7 L (10.1-14.3) gm/dl Hct 22.9 L (30.3-42.9) % MCV 78 L (79-97) fl MCH 26 L (28-32) pg RDW 16.0 H (13.2-15.2) %
[2018-02-17] MEDS: TYLENOL PO PRN ×2 (16:30→21:48)
--- NOTE | 2018-02-17 18:35 | Progress Note ---
Assessment and Plan - Patient Problems (1) Current Visit: Yes Status: Acute (2) Anemia Current Visit: Yes Status: Chronic Qualifiers: Hemolytic anemia type: acquired, autoimmune, other Plan to address problem: States her anemia is d/t SLE, she has not followed up with a director power No evidence of bleeding (3) Thrombocytopenia Current Visit: Yes Status: Resolved (4) Acute breast pain Current Visit: Yes Status: Acute (5) Fever Current Visit: Yes Status: Resolved (6) Mastitis Current Visit: Yes Status: Acute (7) Hypertension Current Visit: No Status: Chronic Qualifiers: Hypertension type: essential hypertension Qualified Code(s): I10 - Essential (primary) hypertension Plan to address problem: Increase Labetalol to 300mg tid, first dose now (8) Lupus (systemic lupus erythematosus) Current Visit: No Status: Chronic Qualifiers: Systemic lupus erythematosus type: unspecified Subjective - Subjective Date of service: 02/17/18 Principal diagnosis: HD #3 s/p admission for recurrent mastitis, fever Interval history: Feels much better, denies bleeding, N/V Patient reports: no appetite normal, no voiding normally Objective - Vital Signs Latest vital signs: Vital Signs Temp Pulse Resp BP BP Pulse Ox 02/17/18 18:28 98.2 F 99 H 22 154/103 02/17/18 16:30 20 02/17/18 13:00 98.3 F 104 H 20 132/93 02/17/18 12:30 102 H 20 148/95 02/17/18 12:00 98.8 F 101 H 22 156/102 02/17/18 11:45 100 H 22 143/95 02/17/18 11:43 22 02/17/18 11:30 100 H 20 143/94 02/17/18 11:15 105 H 20 150/101 02/17/18 11:00 94 H 20 142/97 02/17/18 10:55 96 H 20 145/101 02/17/18 10:50 92 H 20 159/106 02/17/18 10:30 83 20 168/109 02/17/18 09:50 98.5 F 89 20 160/107 02/17/18 03:18 98.7 F 91 H 16 142/94 100 02/16/18 23:39 20 02/16/18 23:12 98 H 169/101 02/16/18 23:06 99.0 F 89 18 169/111 100 02/16/18 20:34 98 H 169/101 02/16/18 19:34 99.1 F 88 16 168/104 100 Intake and Output 02/17/18 02/17/18 02/17/18 06:59 14:59 22:59 Intake Total 1500 480 240 Output Total 1200 Balance 1500 -720 240 Intake: IV 1300 CLEOCIN 600 MG/50 mL 600 50 mg In 50 ml @ 100 mls/hr IV Q8H KESHIA Rx#:[id number] NaCl 0.9% 1000 ml 1,000 1000 ml @ 125 mls/hr IV DIRECT KESHIA Rx#:[id number] VANCOMYCIN/NS 1 GM/250 ML 250 1 gm In 250 ml @ 166.667 mls/hr IV Q12H KESHIA Rx#: [id number] Oral 200 480 240 Output: Urine 1200 Void 1200 Other: Total, Intake Amount 200 360 240 Total, Output Amount 600 Voiding Method Toilet Toilet # Voids Void 2 1 - Exam Abdomen: Present: normal appearance, soft. Absent: distention, tenderness, guarding - Labs Labs: Abnormal lab results 02/17/18 Range/Units 10:49 WBC 3.5 L (4.5-11.0) K/mm3 RBC 2.95 L (3.65-5.03) M/mm3 Hgb 7.7 L (10.1-14.3) gm/dl Hct 22.9 L (30.3-42.9) % MCV 78 L (79-97) fl MCH 26 L (28-32) pg RDW 16.0 H (13.2-15.2) %
[2018-02-17] MEDS ORDERED: PROCARDIA XL PO SCH (20:30)
[2018-02-17] MEDS: CLEOCIN PO SCH (21:44)
[2018-02-18] MEDS: NORMODYNE PO SCH ×2 (03:16→13:34)
--- NOTE | 2018-02-18 06:24 | Progress Note ---
Subjective Date of service: 02/18/18 (pt states there is no pain in her breast this AM) Principal diagnosis: HD #4 s/p admission for recurrent mastitis, fever; first trimester Interval history: Pt resting. SO present in room. VSS Left Breast is still somewhat swollen, feels warm on the outer aspect Pt denies any cramping, vaginal spotting. Denies any s/sx of anemia. P: as noted by MDs Pt is aware Will consult with Objective - Constitutional Vitals: Vital Signs - 12hr 02/17/18 02/17/18 02/17/18 18:28 19:00 19:34 Temperature 98.2 F 98.2 F Pulse Rate 99 H 82 82 Respiratory 22 18 Rate Blood Pressure 168/111 Blood Pressure 154/103 168/111 [Left] O2 Sat by Pulse 100 Oximetry 02/17/18 02/17/18 02/17/18 20:10 20:15 21:06 Temperature Pulse Rate 81 80 85 Respiratory 20 Rate Blood Pressure 192/117 Blood Pressure 191/118 185/125 [Left] O2 Sat by Pulse 100 Oximetry 02/17/18 02/18/18 02/18/18 21:25 00:22 03:16 Temperature 97.8 F Pulse Rate 90 107 H 94 H Respiratory 20 17 Rate Blood Pressure 150/94 Blood Pressure 138/94 141/88 [Left] O2 Sat by Pulse 100 100 Oximetry - Labs CBC & Chem 7: 02/17/18 10:49 02/14/18 20:08 Labs: Abnormal lab results 02/17/18 Range/Units 10:49 WBC 3.5 L (4.5-11.0) K/mm3 RBC 2.95 L (3.65-5.03) M/mm3 Hgb 7.7 L (10.1-14.3) gm/dl Hct 22.9 L (30.3-42.9) % MCV 78 L (79-97) fl MCH 26 L (28-32) pg RDW 16.0 H (13.2-15.2) %
[2018-02-18] MEDS ORDERED: FEOSOL PO SCH (09:00)
[2018-02-18 10:44] LABS: Basophils % (Auto) 0.7 % (0.0-1.8); Eosinophils # (Auto) 0.1 K/mm3 (0.0-0.4); Eosinophils % (Auto) 3.8 % (0.0-4.3); Hematocrit 24.2 % (30.3-42.9); Lymphocytes # (Auto) 1.1 K/mm3 (1.2-5.4); Lymphocytes % (Auto) 39.3 % (13.4-35.0); Mean Corpuscular HGB Conc 33 % (30-34); Mean Corpuscular Hemoglobin 26 pg (28-32); Mean Corpuscular Volume 78 fl (79-97); Monocytes # (Auto) 0.3 K/mm3 (0.0-0.8); Monocytes % (Auto) 9.1 % (0.0-7.3); Platelet Count 178 K/mm3 (140-440); Red Blood Count 3.13 M/mm3 (3.65-5.03); Red Cell Distribution Width 16.4 % (13.2-15.2)
--- NOTE | 2018-02-18 12:09 | Discharge Summary ---
Providers - Providers Date of Admission: 02/15/18 02:45 Date of discharge: 02/18/18 (pt agrees to d/c) Attending physician: MARVIN WELLS 02/15/18 02:33 Consult to Physician [CONS] Urgent Comment: Consulting Provider: MARVIN WELLS Physician Instructions: Reason For Exam: mastitis, bandemia 02/15/18 06:29 Consult to Physician [CONS] Routine Comment: Consulting Provider: JENNIFER DAS Physician Instructions: Reason For Exam: mastitis 02/15/18 06:31 Consult to Physician [CONS] Routine Comment: Consulting Provider: ADONIS WEBB Physician Instructions: Reason For Exam: recurrent mastitis Primary care physician: PEDIATRIC SPORTS MEDICINE SPECIALIST Hospitalization Reason for admission: other (breast pain) Hospital course: Treatment of breast pain/mastitis first trimester Condition at discharge: Good Disposition: DC-01 TO HOME OR SELFCARE - Discharge Diagnoses (1) Acute breast pain Status: Acute Comment: pt will f/u with as instructed (2) Status: Acute Comment: pt had a BHCG of >900 She will f/u with her OB upon d/ c Plan - Discharge Medications Prescriptions: Clindamycin [Clindamycin CAP] 300 mg PO Q8H #30 cap Labetalol [Normodyne TAB] 200 mg PO BID #60 tablet Labetalol [Normodyne TAB] 300 mg PO TID #90 tablet - Provider Discharge Summary Activity: routine, no strenuous exercise Diet: routine Instructions: routine Additional instructions: [] Smoking cessation referral if applicable(refer to patient education folder for contact #) [] Refer to [facility]'s [facility] Booklet Call your doctor immediately for: * Fever > 100.5 * Heavy vaginal bleeding ( >1 pad per hour) * Severe persistent headache * Shortness of breath * Reddened, hot, painful area to leg or breast * Drainage or odor from incision. * Keep incision clean and dry at all times and follow doctor's instructions regarding bathing/showering - Follow up plan Follow up: PRIMARY CARE,MD [Primary Care Provider] - 3-5 Days CRISTIAN CHAVIS CNM [Advanced Practice Nurse] - 7 Days (Please call and make a follow up appointment with 's office and please call your OBGYN to begin care. Please take medications as prescribed. Call with headache, blurred vision, chest pain.)
[2018-02-18] MEDS: CLEOCIN PO SCH (15:33)
[2018-02-18 19:57] VITALS: BP 160/99
[2018-02-18] MEDS ORDERED: PROCARDIA XL PO SCH (20:35)
== END 2018-02-18 20:00 | disposition home or self-care (01) | DRG 781 ==
LOC: ED 19:28 → OB 02-15 02:45
PROVIDERS: ADMIT Obstetrics & Gynecology; ATTEND Obstetrics & Gynecology
DX: O98.811 Other maternal infectious and parasitic diseases complicating pregnancy, first trimester (principal); A41.9 Sepsis, unspecified organism; O99.411 Diseases of the circulatory system complicating pregnancy, first trimester; O10.911 Unspecified pre-existing hypertension complicating pregnancy, first trimester; O99.111 Other diseases of the blood and blood-forming organs and certain disorders involving the immune mechanism complicating pregnancy, first trimester; O91.211 Nonpurulent mastitis associated with pregnancy, first trimester; D72.825 Bandemia; M32.9 Systemic lupus erythematosus, unspecified; R00.0 Tachycardia, unspecified; Z88.8 Allergy status to other drugs, medicaments and biological substances; O99.011 Anemia complicating pregnancy, first trimester; D64.9 Anemia, unspecified; O26.891 Other specified pregnancy related conditions, first trimester; D69.6 Thrombocytopenia, unspecified
CPT/HCPCS: 36415; 71046; 80053; 81001; 82140; 82805; 84702; 85007; 85025; 85027; 85610; 86140; 87040; 87086; 93005; 93010; 96360; 99285; J0360; J2405; J3010; J3370; J7030; J7050

== ENCOUNTER 2018-09-21 11:48 | Inpatient (IN) | payer MEDICAID, OTHER ==
[2018-09-21] MEDS ORDERED: GENTAMICIN IV ONE (12:57)
[2018-09-21] MEDS ORDERED: BICITRA PO ONE (12:57)
[2018-09-21] MEDS ORDERED: PEPCID IV ONE (12:57)
[2018-09-21] MEDS ORDERED: REGLAN IV ONE (12:57)
[2018-09-21] MEDS ORDERED: NACL 0.9% IV ONE (12:57)
[2018-09-21] MEDS ORDERED: CLEOCIN 900 MG/50 mL 900 MG/50 ML BAG IV NR (13:00)
[2018-09-21] MEDS ORDERED: PITOCin/NS 20 UNIT/1000ML DRIP 20 UNITS/1,000 ML BAG IV SCH ×2 (13:00→18:46)
--- NOTE | 2018-09-21 13:04 | History and Physical Report ---
History of Present Illness Date of examination: 09/21/18 Date of admission: 09/21/18 11:48 Chief complaint: sent from [facility] for delivery History of present illness: Pt is a 23 year old -[place] female JAH 10/18/18 at 36w1d who presents from [facility] with elevated blood pressures, diagnosed with chronic hypertension with supermposed preeclampsia with instruction for delivery. 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 Past History Past Medical History: hypertension, other (lupus) Past Surgical History: section (2017) [employer]GER History: chlamydia (09/13/18) Family/Genetic History: other (thyroid dysfunction ) Social history: no significant social history - Obstetrical History Expected Date of Delivery: 10/18/18 Actual Gestation: 36 Week(s) 1 Day(s) : 3 Para: 2 Hx # Term Pregnancies: 1 Number of Pregnancies: 1 Spontaneous Abortions: 0 Induced : 0 Number of Living Children: 2 Medications and Allergies Allergies Allergy/AdvReac Type Severity Reaction Status Date / Time amoxicillin Allergy Intermediate Angioedema Verified 09/21/18 12:51 Home Medications Medication Instructions Recorded Confirmed Last Taken Type Ferrous Sulfate [Feosol 325 MG tab] 325 mg PO BID #60 tablet 02/18/18 09/21/18 09/20/18 09:00 Rx 1 Labetalol [Normodyne TAB] 300 mg PO TID #90 tablet 02/18/18 09/21/18 09/20/18 09:00 Rx 300mg Active Meds: Active Medications Citric Acid/Sodium Citrate (Bicitra) 30 ml PO ONCE ONE Stop: 09/21/18 12:58 Famotidine (Pepcid) 20 mg IV ONCE ONE Stop: 09/21/18 12:58 Clindamycin HCl (Cleocin 900 Mg/50 Ml) 900 mg in 50 mls @ 100 mls/hr IV PREOP NR; Protocol Gentamicin Sulfate / Sodium (Chloride) 100 mls @ 200 mls/hr IV PREOP ONE; Protocol Stop: 09/21/18 13:26 Lactated Ringer's (Lactated Ringers) 1,000 mls @ 2,250 mls/hr IV PREOP KESHIA Stop: 09/22/18 13:27 Oxytocin/Sodium Chloride (Pitocin/Ns 20 Unit/1000ml Drip) 20 units in 1,000 mls @ 0 mls/hr IV TITR KESHIA Metoclopramide HCl (Reglan) 10 mg IV ONCE ONE Stop: 09/21/18 12:58 Review of Systems All systems: negative - Vital Signs Vital signs: Vital Signs Pulse BP Pulse Ox 69 177/116 98 09/21/18 12:36 09/21/18 12:36 09/21/18 12:36 Temp Pulse Resp BP Pulse Ox 75 178/120 97 09/21/18 12:50 09/21/18 12:50 09/21/18 12:41 - Physical Exam Breasts: Positive: deferred Cardiovascular: Regular rate Lungs: Positive: Clear to auscultation Abdomen: Positive: soft (gravid) Uterus: Positive: enlarged (gravid ) Extremities: Positive: normal - Obstetrical FHR: auscultation normal Results All other labs normal. Assessment and Plan A: IUP at 36w1d Chronic Hypertension with Superimposed Preeclampsia Previous x 1 Lupus Chlamydia 09/13/18 GBS positive status P: Admit to labor and delivery PIH panel Proceed with repeat section and other indicated procedures
[2018-09-21] MEDS ORDERED: APRESOLINE IV ONE (13:13)
[2018-09-21] MEDS ORDERED: GENTAMICIN 120 MG in NACL 0.9% 100 ML IV ONE (13:22)
[2018-09-21] MEDS: LACTATED RINGERS 1,000 ML IV SCH ×2 (13:31→14:38)
[2018-09-21] MEDS ORDERED: GENTAMICIN/NS 120MG/100ML 120 MG/100 ML BAG IV SCH (14:00)
[2018-09-21 14:04] LABS: Hematocrit 32.3 % (30.3-42.9); Hemoglobin 10.5 gm/dl (10.1-14.3); Mean Corpuscular HGB Conc 33 % (30-34); Mean Corpuscular Volume 81 fl (79-97); Platelet Count 179 K/mm3 (140-440); Red Cell Distribution Width 15.4 % (13.2-15.2)
[2018-09-21 14:07] LABS: Alanine Aminotransferase 7 units/L (7-56)
[2018-09-21] MEDS ORDERED: SUBLIMAZE ONE (14:31)
--- NOTE | 2018-09-21 14:43 | Anesthesia Consultation ---
Anesthesia Consult and Med Hx Date of service: 09/21/18 - Airway Anesthetic Teeth Evaluation: Good ROM Head & Neck: Adequate Mental/Hyoid Distance: Adequate Mallampati Class: Class II Intubation Access Assessment: Probably Good - Pulmonary Exam CTA: Yes - Cardiac Exam Cardiac Exam: RRR - Pre-Operative Health Status ASA Pre-Surgery Classification: ASA3, Emergency Proposed Anesthetic Plan: Spinal - Pre-Anesthesia Comment Pre-Anesthesia Comments: lupus - Pulmonary Hx Smoking: No Hx Asthma: No Hx Respiratory Symptoms: No SOB: No COPD: No Home Oxygen Therapy: No Hx Pneumonia: No Hx Sleep Apnea: No - Cardiovascular System Hx Hypertension: Yes (superimposed Preeclampsia) Hx Coronary Artery Disease: No Hx Heart Attack/AMI: No Hx Angina: No Hx Percutaneous Transluminal Coronary Angioplasty (PTCA): No Hx Cardia Arrhythmia: No Hx Pacemaker: No Hx Internal Defibrillator: No Hx Valvular Heart Disease: No Hx Heart Murmur: No Hx Peripheral Vascular Disease: No - Central Nervous System Hx Neuromuscular Disorder: No Hx Seizures: No CVA: No Hx Back Pain: No Hx Psychiatric Problems: No - Gastrointestinal Hx Ulcer: No Hx Gastroesophageal Reflux Disease: No - Endocrine Hx Renal Disease: No Hx End Stage Renal Disease: No Hx Cirrhosis: No Hx Liver Disease: No Hx Insulin Dependent Diabetes: No Hx Non-Insulin Dependent Diabetes: No Hx Thyroid Disease: No Hx Hypothyroidism: No Hx Hyperthyroidism: No - Hematic Hx Anemia: No Hx Sickle Cell Disease: No - Other Systems Hx Alcohol Use: No Hx Substance Use: No Hx Cancer: No Hx Obesity: No
--- NOTE | 2018-09-21 14:43 | Anesthesia Day of Surgery ---
Anesthesia Day of Surgery - Day of Surgery Patient Examined: Yes Patient H&P Reviewed: Yes Patient is NPO: Yes Beta Blockers: Yes Cardiac Clearance: No Pulmonary Clearance: No Danilo's Test: N/A
--- NOTE | 2018-09-21 14:44 | Post Anesthesia Evaluation ---
- Post Anesthesia Evaluation Patient Participated: Yes Airway Patent: Yes Stable Respiratory Function: Yes Nausea/Vomiting: No Temp > 96.8F: Yes Pain Manageable: Yes Adequeate Hydration: Yes Anesthesia Complications: No Block Receding Appropriately: Yes Patient on Ventilator: No
[2018-09-21] MEDS ORDERED: WATER FOR IRRIG STERILE IR ONE (15:00)
[2018-09-21] MEDS ORDERED: PHENERGAN PO PRN (15:00)
[2018-09-21] MEDS ORDERED: ZOFRAN IV PRN ×2 (15:00→18:46)
[2018-09-21] MEDS ORDERED: NARCAN 0.4 MG/1 ML IV PRN ×2 (15:00→18:46)
[2018-09-21] MEDS ORDERED: PHENERGAN PR PRN (15:00)
[2018-09-21] MEDS ORDERED: SODIUM CHLORIDE FLUSH SYRINGE 10 ML IV PRN (15:00)
[2018-09-21] MEDS ORDERED: NACL 0.9% IR ONE (15:00)
[2018-09-21 15:16] LABS: Bacteria,Urine 1+ /HPF (Negative); Bilirubin,Urine NEG (Negative); Blood,Urine NEG (Negative); Color,Urine Yellow (Yellow); Hyaline Casts,Urine 3 /LPF; Urobilinogen,Urine < 2.0 mg/dL (<2.0)
[2018-09-21 15:23] LABS: Protein,Urine >500 mg/dL (Negative)
[2018-09-21 15:45] LABS: Uric Acid 5.8 mg/dL (3.5-7.6)
--- NOTE | 2018-09-21 16:24 | Procedure Note ---
OB Delivery Note - Delivery Date of Delivery: 09/21/18 Surgeon: FABIOLA FRANCOIS Estimated blood loss: other (800 mL) - Section Preop diagnosis: repeat , other (Chronic HTN with Superimposed Preeclampsia ) Postop diagnosis: same section procedure: section, repeat low transverse Disposition: PACU Complications: none Narrative: Please see operative note - Infant A at 1 minute: 8 at 5 minutes: 9 Gender: Female (2018g (4lb 7 oz) @ 1536 pm)
[2018-09-21] MEDS ORDERED: MAGNESIUM SULFATE 4GM/100ML 4 GM/100 ML BAG IV ONE (16:28)
[2018-09-21] MEDS ORDERED: NORMODYNE IV ONE (16:28)
--- NOTE | 2018-09-21 16:28 | Operative Report ---
Operative Report Operative Report: Date of procedure: September 21, 2018 Preoperative diagnosis: 1) IUP at 36w1d 2) Chronic HTN with superimposed pree clampsia 3) Previous x 1 4) Lupus Postoperative diagnosis: Same Procedure: Repeat low transverse section Surgeon: Heaven Sullivan M.D. Anesthesia: Regional Findings: 1) Viable female , Apgars 8 and 9, weight 2018g, (4 lb 7 oz) in cephalic presentation 2) Normal-appearing uterus ovaries and tubes Estimated blood loss: 800 mL IV fluids: 1600 mL Urine output: 100 mL, clear at the end of the procedure Drains: Cervantes to gravity Specimens: Placenta to pathology Complications: None. Counts correct x 3 Disposition: Stable to PACU Indication for procedure: Pt is a 23 year old at 36w1d with h/o previous x 1 and chronic hypertension with superimposed preeclampsia presents for delivery. Operation in detail: After the risks, benefits, alternatives and complications were explained to the patient she gave informed consent for the procedure. She was subsequently taken to the operating room where regional anesthesia was noted to be adequate. She was subsequently placed in the dorsal supine position with leftward tilt and prepped and draped in a normal sterile fashion. heart tones were noted to be in the 130s prior to incision. A timeout was performed. A Pfannenstiel skin incision was made with the knife and carried down to the layer of the fascia with the Bovie. The fascia was incised in the midline and the fascial incision was extended bilaterally with the Bovie. Attention was then turned to the superior aspect of the incision which was grasped with two Kochers, tented up, and dissected off the rectus muscles. Attention was then turned to the inferior aspect of the incision which was grasped with two Kochers, tented up and dissected off the rectus muscles. The rectus muscles were then in the midline. The peritoneum was then entered bluntly. The peritoneal incision was extended with good visualization of the bladder. The peritoneal incision was then stretched. An Dean self-retaining retractor was placed for visualization. The bladder blade was placed. The vesicouterine peritoneum was grasped with smooth pickups and incised with Metzenbaum scissors. Metzenbaum scissors were used to extend the incision bilaterally. The bladder flap was then created digitally and the bladder blade was replaced. A transverse incision was made in the lower uterine segment with a knife and extended bilaterally with the bandage scissors. The head was delivered without difficulty followed by shoulders and body. was bulb suctioned at delivery. The cord was clamped and cut and the was handed to NICU staff in attendance. Cord blood was collected. The placenta was then delivered manually. The uterus was then cleared of all clots and debris. The hysterotomy was then reapproximated with 0 Vicryl in a running locked fashion. A second layer of the same suture was used in imbricating fashion. The hysterotomy was inspected and hemostasis was noted. The Dean self-retaining retractor was removed. The gutters were irrigated and cleared of all clots and debris. The hysterotomy was again inspected and noted to be hemostatic. Surgicel was placed over the hysterotomy. The peritoneum was reapproximated with 2-0 Vicryl in a running fashion incorporating the rectus muscles. The fascia was reapproximated with 0 Vicryl in a running fashion. The subcutaneous tissue was reapproximated with 3- 0 Vicryl in a running fashion. The skin was reapproximated with 4-0 Vicryl in a subcuticular fashion. The incision was then covered with steri strips and a pressure dressing. The procedure was then ended. The patient tolerated the procedure well and was taken to the PACU in stable condition. All instrument, lap, and needle counts were correct 3.
[2018-09-21] MEDS ORDERED: MAGNESIUM SULFATE 40GM/1000ML 40 GM/1,000 ML BAG IV SCH (17:00)
[2018-09-21] MEDS ORDERED: LACTATED RINGERS 1,000 ML IV SCH (17:00)
[2018-09-21] MEDS ORDERED: TUCKS PAD TP PRN (18:46)
[2018-09-21] MEDS ORDERED: TORADOL IV PRN (18:46)
[2018-09-21] MEDS ORDERED: LANSINOH TP PRN (18:46)
[2018-09-21] MEDS ORDERED: DILAUDID IV PRN ×2 (18:46)
[2018-09-21] MEDS ORDERED: MYLICON PO PRN (18:46)
[2018-09-21] MEDS ORDERED: SODIUM CHLORIDE FLUSH SYRINGE 10 ML IV NR (18:46)
[2018-09-21] MEDS ORDERED: D5LR 1,000 ML IV SCH (18:46)
[2018-09-21] MEDS: IBUPROFEN PO PRN (20:15)
[2018-09-21] MEDS ORDERED: CYTOTEC PR ONE (22:57)
[2018-09-21] MEDS ORDERED: CYTOTEC ONE (22:58)
[2018-09-21] MEDS: CLEOCIN 600 MG/50 mL 600 MG/50 ML BAG IV SCH (23:13)
--- NOTE | 2018-09-21 23:28 | Event Note ---
Date: 09/21/18 Late entry. Nurse contacted on-call Panfilo.Mary regarding 2 episodes of uterine atony with increased vaginal bleeding. Hemoglobin and hematocrit ordered. Vital signs and stable. Patient was given misoprostol 800 g per rectum. We'll continue to monitor bleeding pattern as well as clinical status.
[2018-09-21 23:45] LABS: Hematocrit 25.9 % (30.3-42.9); Hemoglobin 8.4 gm/dl (10.1-14.3)
[2018-09-22] MEDS: APRESOLINE IV PRN ×2 (01:25→02:31)
[2018-09-22 05:31] LABS: Hematocrit 24.1 % (30.3-42.9); Hemoglobin 7.7 gm/dl (10.1-14.3)
[2018-09-22] MEDS ORDERED: BOOSTRIX IM ONE (06:00)
[2018-09-22] MEDS ORDERED: M-M-R II VACCINE SUB-Q ONE (06:00)
[2018-09-22] MEDS: CLEOCIN 600 MG/50 mL 600 MG/50 ML BAG IV SCH (08:48)
[2018-09-22] MEDS: PERCOCET 5/325 PO PRN ×3 (08:50→21:20)
--- NOTE | 2018-09-22 09:27 | Progress Note ---
Assessment and Plan - Patient Problems (1) Preeclampsia Current Visit: Yes Status: Acute Plan to address problem: complete 24hours magnesium routine postop care Subjective - Subjective Date of service: 09/22/18 Interval history: POD #1 s/p . Patient without complaints. Receiving magnesium for preeclampsia. Labile blood pressures. Patient reports: pain well controlled Objective - Vital Signs Latest vital signs: Vital Signs Temp Pulse Resp BP Pulse Ox 09/22/18 09:21 90 100 09/22/18 09:16 92 H 100 09/22/18 09:11 93 H 100 09/22/18 09:06 98 H 100 09/22/18 09:01 97 H 100 09/22/18 08:56 107 H 100 09/22/18 08:51 97 H 100 09/22/18 08:46 109 H 100 09/22/18 08:43 99 H 153/89 09/22/18 08:41 95 H 100 09/22/18 08:36 97 H 100 09/22/18 08:28 109 H 153/86 09/22/18 08:13 121 H 159/90 09/22/18 08:09 99 H 100 09/22/18 08:04 98 H 100 09/22/18 07:59 120 H 100 09/22/18 07:58 114 H 149/92 09/22/18 07:54 95 H 100 09/22/18 07:49 101 H 100 09/22/18 07:44 105 H 100 09/22/18 07:43 112 H 145/83 09/22/18 07:39 104 H 100 09/22/18 07:34 103 H 100 09/22/18 07:29 98 H 100 09/22/18 07:28 107 H 145/84 09/22/18 07:24 103 H 100 09/22/18 07:19 102 H 100 09/22/18 07:14 98 H 100 09/22/18 07:13 108 H 141/81 09/22/18 07:09 106 H 100 09/22/18 07:04 105 H 100 09/22/18 06:59 109 H 100 09/22/18 06:58 113 H 148/85 09/22/18 06:54 117 H 100 09/22/18 06:49 107 H 100 09/22/18 06:44 106 H 100 09/22/18 06:43 117 H 150/78 09/22/18 06:39 107 H 100 09/22/18 06:34 122 H 100 09/22/18 06:28 112 H 154/86 09/22/18 06:25 112 H 100 09/22/18 06:20 110 H 100 09/22/18 06:15 111 H 100 09/22/18 06:13 108 H 146/82 09/22/18 06:10 107 H 100 09/22/18 06:04 107 H 100 09/22/18 06:00 115 H 100 09/22/18 05:58 107 H 148/85 09/22/18 05:55 110 H 100 09/22/18 05:49 113 H 100 09/22/18 05:45 113 H 100 09/22/18 05:43 112 H 151/85 09/22/18 05:39 107 H 100 09/22/18 05:35 109 H 100 09/22/18 05:30 108 H 100 09/22/18 05:28 109 H 149/85 09/22/18 05:25 111 H 100 09/22/18 05:20 124 H 97 09/22/18 05:14 115 H 155/89 100 09/22/18 05:13 137 H 177/113 09/22/18 04:58 114 H 136/73 09/22/18 04:48 124 H 100 09/22/18 04:43 120 H 160/89 09/22/18 04:42 115 H 100 09/22/18 04:37 117 H 100 09/22/18 04:32 120 H 100 09/22/18 04:30 16 09/22/18 04:28 122 H 151/84 09/22/18 04:27 116 H 100 09/22/18 04:22 124 H 100 09/22/18 04:17 121 H 100 09/22/18 04:13 126 H 151/86 09/22/18 04:12 149 H 100 09/22/18 04:07 120 H 100 09/22/18 04:02 114 H 100 09/22/18 03:58 125 H 144/79 09/22/18 03:57 117 H 100 09/22/18 03:52 116 H 100 09/22/18 03:47 117 H 100 09/22/18 03:43 117 H 144/74 09/22/18 03:42 116 H 100 09/22/18 03:37 113 H 100 09/22/18 03:32 137 H 100 09/22/18 03:28 116 H 144/81 09/22/18 03:27 114 H 100 09/22/18 03:22 112 H 100 09/22/18 03:17 112 H 100 09/22/18 03:13 125 H 152/88 09/22/18 03:12 125 H 100 09/22/18 03:07 118 H 100 09/22/18 03:02 120 H 100 09/22/18 02:58 120 H 151/89 09/22/18 02:57 122 H 100 09/22/18 02:52 115 H 100 09/22/18 02:47 117 H 100 09/22/18 02:43 115 H 158/87 09/22/18 02:42 111 H 100 09/22/18 02:37 109 H 100 09/22/18 02:32 109 H 100 09/22/18 02:31 104 H 177/95 09/22/18 02:28 102 H 177/95 09/22/18 02:27 101 H 100 09/22/18 02:22 133 H 99 09/22/18 02:17 109 H 100 09/22/18 02:13 108 H 176/98 09/22/18 02:12 105 H 100 09/22/18 02:07 107 H 100 09/22/18 02:02 106 H 100 09/22/18 01:58 107 H 174/100 09/22/18 01:57 106 H 100 09/22/18 01:52 107 H 100 09/22/18 01:47 103 H 99 09/22/18 01:43 108 H 172/97 09/22/18 01:42 99 H 99 09/22/18 01:37 100 H 100 09/22/18 01:32 100 H 100 09/22/18 01:27 92 H 100 09/22/18 01:25 92 H 190/117 09/22/18 01:22 89 99 09/22/18 01:17 101 H 190/117 100 09/22/18 01:12 96 H 187/117 100 09/22/18 01:07 94 H 99 09/22/18 01:02 94 H 99 05/01/19 00:57 94 H 99 09/22/18 00:52 89 100 09/22/18 00:47 102 H 99 09/22/18 00:42 99 H 169/107 100 09/22/18 00:37 98 H 99 09/22/18 00:32 94 H 99 09/22/18 00:27 102 H 100 09/22/18 00:22 98 H 99 09/22/18 00:17 96 H 99 09/22/18 00:12 98 H 157/105 99 09/22/18 00:07 98 H 99 09/22/18 00:02 96 H 99 09/21/18 23:57 98 H 99 09/21/18 23:52 92 H 100 09/21/18 23:47 98 H 99 09/21/18 23:42 97 H 151/92 99 09/21/18 23:38 18 09/21/18 23:37 110 H 99 09/21/18 23:32 104 H 98 09/21/18 23:27 99 H 99 09/21/18 23:22 102 H 98 09/21/18 23:17 99 H 100 09/21/18 23:12 104 H 143/97 100 09/21/18 23:07 98 H 99 09/21/18 23:02 101 H 100 09/21/18 22:57 92 H 100 09/21/18 22:52 131 H 100 09/21/18 22:47 125 H 99 09/21/18 22:42 111 H 181/105 99 09/21/18 22:37 101 H 99 09/21/18 22:32 97 H 100 09/21/18 22:27 107 H 100 09/21/18 22:22 98 H 100 09/21/18 22:17 109 H 99 09/21/18 22:12 104 H 174/106 100 09/21/18 22:07 114 H 99 09/21/18 22:02 100 H 100 09/21/18 21:57 98 H 100 09/21/18 21:52 98 H 100 09/21/18 21:47 96 H 99 09/21/18 21:42 92 H 164/98 99 09/21/18 21:37 91 H 100 09/21/18 21:32 91 H 99 09/21/18 21:27 80 100 09/21/18 21:22 101 H 100 09/21/18 21:17 87 98 09/21/18 21:15 18 09/21/18 21:12 101 H 171/96 100 09/21/18 21:07 83 99 09/21/18 21:02 73 99 09/21/18 20:57 74 100 09/21/18 20:52 83 97 09/21/18 20:47 98 H 98 09/21/18 20:42 96 H 143/85 99 09/21/18 20:41 18 09/21/18 20:37 82 100 09/21/18 20:34 66 66 L 09/21/18 20:32 74 100 09/21/18 20:27 86 100 09/21/18 20:22 88 100 09/21/18 20:17 79 100 09/21/18 20:15 18 09/21/18 20:11 82 18 141/88 09/21/18 19:56 83 143/91 09/21/18 19:41 85 142/91 09/21/18 19:26 82 142/93 09/21/18 19:11 75 137/90 09/21/18 18:57 75 138/93 09/21/18 18:27 78 100 09/21/18 17:30 98.5 F 78 13 154/97 98 09/21/18 17:26 97 H 99 09/21/18 17:21 95 H 97 09/21/18 17:20 100 H 112/61 09/21/18 17:16 107 H 100 09/21/18 17:11 91 H 99 09/21/18 17:10 87 21 155/100 98 09/21/18 17:06 83 106/55 99 09/21/18 17:01 78 98 09/21/18 16:56 87 99 09/21/18 16:55 70 20 161/95 100 09/21/18 16:51 79 99 09/21/18 16:46 73 99 09/21/18 16:43 75 109/64 09/21/18 16:41 72 100 09/21/18 16:40 67 15 156/94 100 09/21/18 16:36 89 98 09/21/18 16:35 80 15 155/96 100 09/21/18 16:31 76 99 09/21/18 16:29 97.8 F 93 H 15 144/84 100 09/21/18 16:26 93 H 100 09/21/18 16:21 81 100 09/21/18 16:16 83 98 09/21/18 16:11 74 100 09/21/18 16:06 71 0 L 09/21/18 14:35 90 165/97 09/21/18 14:20 93 H 170/103 09/21/18 14:05 87 180/98 09/21/18 13:50 93 H 163/101 09/21/18 13:38 82 177/110 09/21/18 13:35 87 185/118 09/21/18 13:34 80 180/110 09/21/18 13:20 80 180/110 09/21/18 13:18 75 177/104 09/21/18 13:05 71 196/126 09/21/18 12:55 75 18 97 09/21/18 12:50 75 178/120 09/21/18 12:41 77 97 09/21/18 12:36 69 177/116 98 Intake and Output 09/21/18 09/22/18 09/22/18 22:59 06:59 14:59 Intake Total 900 50 Output Total 200 500 Balance 700 -450 Intake: IV 900 50 CLEOCIN 600 MG/50 mL 600 50 mg In 50 ml @ 100 mls/hr IV Q8H [facility] Rx#:[id number] Output: Urine 200 500 Indwelling Catheter 500 Other: Total, Output Amount 500 Estimated Blood Loss 900 - Exam Abdomen: Present: normal appearance Incision: Present: dressed - Labs Labs: Abnormal lab results 09/21/18 09/21/18 09/21/18 Range/Units 23:18 23:18 Unknown Hgb 8.4 L (10.1-14.3) gm/dl Hct 25.9 L D (30.3-42.9) % MCH 26 L (28-32) pg RDW 15.4 H (13.2-15.2) % Creatinine (0.7-1.2) mg/dL Magnesium 3.90 H (1.7-2.3) mg/dL Lactate Dehydrogenase (91-180) units/L 04/30/19 05/01/19 05/01/19 Range/Units Unknown 05:18 05:18 Hgb 7.7 L (10.1-14.3) gm/dl Hct 24.1 L (30.3-42.9) % MCH (28-32) pg RDW (13.2-15.2) % Creatinine 0.6 L (0.7-1.2) mg/dL Magnesium 4.60 H (1.7-2.3) mg/dL Lactate Dehydrogenase 422 H (91-180) units/L
[2018-09-22] MEDS: NORMODYNE PO SCH ×2 (12:04→21:19)
[2018-09-22] MEDS: FEOSOL PO SCH (12:05)
[2018-09-22] MEDS: IBUPROFEN PO PRN (21:19)
[2018-09-23] MEDS: PERCOCET 5/325 PO PRN ×2 (03:35→12:30)
[2018-09-23] MEDS: IBUPROFEN PO PRN ×2 (03:35→20:44)
[2018-09-23] MEDS: FEOSOL PO SCH (10:10)
[2018-09-23] MEDS: NORMODYNE PO SCH ×2 (10:10→21:17)
--- NOTE | 2018-09-24 08:27 | Progress Note ---
Assessment and Plan A/P POD 3 s/p repeat csec doing well s/p mag bp normal on antihypertensives anemia on iron d/c home with f/u in 2 weeks for incision check Subjective - Subjective Date of service: 09/24/18 Patient reports: appetite normal, voiding normally, pain well controlled, flatus, ambulating normally [place]: doing well Objective - Vital Signs Latest vital signs: Vital Signs Temp Pulse Resp BP BP Pulse Ox 09/24/18 05:38 99.4 F 84 18 114/70 100 09/24/18 01:44 98.7 F 82 18 102/59 98 09/23/18 22:33 99.7 F H 106 H 18 125/65 98 09/23/18 21:17 84 135/74 09/23/18 18:25 73 18 134/75 100 09/23/18 16:58 98.6 F 85 18 142/85 100 09/23/18 11:29 98.8 F 82 18 125/86 100 09/23/18 10:10 129/79 Intake and Output 09/23/18 09/24/18 09/24/18 23:59 07:59 15:59 Intake Total 120 360 Balance 120 360 Intake: Intake, Free Water 120 360 Other: # Voids Void 2 - Exam Breasts: Present: normal Cardiovascular: Present: Regular rate, Normal S1 Lungs: Present: Clear to auscultation, Normal air movement Abdomen: Present: normal appearance, soft, normal bowel sounds. Absent: distention, tenderness, guarding Uterus: Present: normal, firm, fundal height below umbilicus. Absent: bogginess, tenderness Extremities: Present: normal Deep Tendon Reflex Grade: Normal +2 Incision: Present: normal, dry, intact
--- NOTE | 2018-09-24 08:29 | Discharge Summary ---
Providers - Providers Date of Admission: 09/21/18 11:48 Date of discharge: 09/24/18 Attending physician: FABIOLA FRANCOIS Primary care physician: FABIOLA FRANCOIS Hospitalization Reason for admission: section Delivery: Procedure: repeat low transverse Episiotomy: none Laceration: none Incision: normal, dry, intact complications: none Discharge diagnosis: IUP at term delivered baby: female Hospital course: Patient admitted for supeimposed pree. patient had a repeat csec. On mag for 24 hrs. Did well pospartum. f/u in 2 weeks for incision check . anemia on iron Condition at discharge: Good Disposition: DC-01 TO HOME OR SELFCARE Plan - Discharge Medications Prescriptions: Ferrous Sulfate [Feosol 325 MG tab] 325 mg PO BID #60 tablet Ibuprofen [Motrin] 600 mg PO Q8H PRN #30 tablet PRN Reason: Pain Labetalol [Normodyne TAB] 200 mg PO BID #60 tablet oxyCODONE /ACETAMINOPHEN [Percocet 5/325] 1 tab PO Q6HR PRN #30 tablet PRN Reason: Pain - Provider Discharge Summary Additional instructions: [] Smoking cessation referral if applicable(refer to patient education folder for contact #) [] Refer to [facility] Booklet Call your doctor immediately for: * Fever > 100.5 * Heavy vaginal bleeding ( >1 pad per hour) * Severe persistent headache * Shortness of breath * Reddened, hot, painful area to leg or breast * Drainage or odor from incision. * Keep incision clean and dry at all times and follow doctor's instructions regarding bathing/showering - Follow up plan Follow up: FABIOLA FRANCOIS MD [Primary Care Provider] - 7 Days
[2018-09-24] MEDS: NORMODYNE PO SCH (10:20)
[2018-09-24] MEDS: FEOSOL PO SCH (10:20)
[2018-09-24] MEDS: PERCOCET 5/325 PO PRN (12:36)
[2018-09-24 18:35] VITALS: BP 126/84
== END 2018-09-24 18:43 | disposition home or self-care (01) | DRG 765 ==
LOC: APU 11:48 → LD 18:24 → OB 09-22 18:42
PROVIDERS: ADMIT Obstetrics & Gynecology; ATTEND Obstetrics & Gynecology
PROC: 10D00Z1 Extraction of Products of Conception, Low, Open Approach (ICD-10-PCS; principal; 2018-09-21)
PROC: 3E0234Z Introduction of Serum, Toxoid and Vaccine into Muscle, Percutaneous Approach (ICD-10-PCS; 2018-09-22)
DX: O34.211 Maternal care for low transverse scar from previous cesarean delivery (principal); O11.4 Pre-existing hypertension with pre-eclampsia, complicating childbirth; O99.12 Other diseases of the blood and blood-forming organs and certain disorders involving the immune mechanism complicating childbirth; O72.1 Other immediate postpartum hemorrhage; M32.9 Systemic lupus erythematosus, unspecified; O99.824 Streptococcus B carrier state complicating childbirth; Z3A.36 36 weeks gestation of pregnancy; Z37.0 Single live birth; Z88.1 Allergy status to other antibiotic agents; Z23 Encounter for immunization
CPT/HCPCS: 36415; 59025; 81001; 82565; 83615; 83735; 84450; 84460; 84550; 85014; 85018; 85027; 86850; 86900; 86901; 88307; 96360; G0378; J0360; J1170; J1580; J1885; J2405; J2590; J2765; J3010; J3475; J7120; J7121